=== PATIENT | female | born 1940 | race Caucasian/White ===

== ENCOUNTER 2017-01-21 14:33 | Emergency (ER) | payer MEDICARE ==
[2017-01-21 15:17] VITALS: RESP 16; TEMP 97.5
[2017-01-21] MEDS ORDERED: HYDROcodone/APAP 5-325MG 1 EACH TAB PO STA (15:52)
--- NOTE | 2017-01-21 15:56 | ED ---
Abdominal Pain HPI - General Chief Complaint: Abdominal Pain Stated Complaint: Back in her back Time Seen by Provider: 01/21/17 15:22 Source: patient, RN notes reviewed Mode of arrival: ambulatory Limitations: no limitations - History of Present Illness Initial Comments: Patient is a 76-year-old female presents to the emergency room for evaluation of right sided back pain. Patient states she's been having on and off right- sided back pain for the past 3 weeks. Patient states the pain began again last night and has not subsided. Patient states she has some relief with Tylenol. Patient states there is no relief with movement of her limbs or back. Patient states the pain is not any worse with taking a deep breath. Patient denies any injury or trauma to her back. Patient states the pain is inferior to her right scapula. Patient states the pain is not any worse with arm movement. Patient denies trouble urinating, pain or burning during urination or blood in urine. Patient denies history of kidney stones. Patient has nausea or vomiting. Patient denies recent heavy lifting or changes in physical activity. - Related Data Home Medications Medication Instructions Recorded Confirmed Cholecalciferol [Vitamin D3] 5,000 unit PO DAILY 01/21/17 01/21/17 Flaxseed Oil [[place]-3 Flaxseed Oil] 1,000 mg PO DAILY 01/21/17 01/21/17 Previous Rx's Medication Instructions Recorded HYDROcodone/APAP 5-325MG [[place] 1 tab PO Q6HR PRN #12 tab 01/21/17 5-325] Nitrofurantoin Monohyd/M-Cryst 100 mg PO Q12HR 5 Days 01/21/17 [Macrobid] Allergies Allergy/AdvReac Type Severity Reaction Status Date / Time aspirin Allergy Anaphylaxis Verified 01/21/17 15:37 ibuprofen [From Motrin] Allergy Anaphylaxis Verified 01/21/17 15:37 Review of Systems ROS Statement: Those systems with pertinent positive or pertinent negative responses have been documented in the HPI. ROS Other: All systems not noted in ROS Statement are negative. Past Medical History Past Medical History: Diabetes Mellitus History of Any Multi-Drug Resistant Organisms: None Reported Past Surgical History: Cholecystectomy, Hysterectomy Additional Past Surgical History / Comment(s): mass removed from (R) ovary. Past Psychological History: No Psychological Hx Reported Smoking Status: Never smoker Past Alcohol Use History: None Reported Past Drug Use History: None Reported General Exam - General Exam Comments Initial Comments: Sitting in exam room in no acute distress. Limitations: no limitations General appearance: alert, in no apparent distress Head exam: Present: atraumatic, normocephalic, normal inspection Eye exam: Present: normal appearance ENT exam: Present: normal exam Neck exam: Present: normal inspection Respiratory exam: Present: normal lung sounds bilaterally. Absent: respiratory distress Cardiovascular Exam: Present: regular rate, normal rhythm, normal heart sounds GI/Abdominal exam: Present: soft, normal bowel sounds. Absent: distended, tenderness, guarding, rebound, rigid Rectal exam: Present: deferred Extremities exam: Present: normal inspection Back exam: Present: normal inspection Neurological exam: Present: alert, oriented X3, CN II-XII intact, normal gait Psychiatric exam: Present: normal affect, normal mood Skin exam: Present: warm, dry, intact, normal color. Absent: rash Course Vital Signs 01/21/17 01/21/17 15:14 19:42 Temperature 97.5 F L Pulse Rate 84 78 Respiratory 16 16 Rate Blood Pressure 137/85 138/78 O2 Sat by Pulse 98 97 Oximetry Medical Decision Making - Medical Decision Making Patient is a 76-year-old female presents to the emergency room for evaluation of right-sided back pain. X-ray shows no significant findings. Urinalysis showed small amount hematuria. Lab work shows no significant findings. CT of abdomen and pelvis shows no signs of nephrolithiasis. There was a small 4 mm pulmonary nodule noted. Results discussed with patient. Advised patient to follow-up with primary care provider for further evaluation of pulmonary nodule. Patient states she's feeling better after medications given. Will treat patient for questionable urinary tract infection. Urine culture pending. Patient states she understands everything that was discussed with her. Return parameters discussed. Case discussed with Dr. Alford. - Lab Data Result diagrams: 01/21/17 17:00 01/21/17 17:00 Lab Results 01/21/17 01/21/17 01/21/17 Range/Units 16:04 17:00 17:00 WBC 9.8 (3.8-10.6) k/uL RBC 5.04 (3.80-5.40) m/uL Hgb 15.6 (11.4-16.0) gm/dL Hct 45.5 (34.0-46.0) % MCV 90.3 (80.0-100.0) fL MCH 31.1 (25.0-35.0) pg MCHC 34.4 (31.0-37.0) g/dL RDW 13.1 (11.5-15.5) % Plt Count 283 (150-450) k/uL Neutrophils % 65 % Lymphocytes % 20 % Monocytes % 7 % Eosinophils % 5 % Basophils % 1 % Neutrophils # 6.4 (1.3-7.7) k/uL Lymphocytes # 2.0 (1.0-4.8) k/uL Monocytes # 0.7 (0-1.0) k/uL Eosinophils # 0.5 (0-0.7) k/uL Basophils # 0.1 (0-0.2) k/uL Sodium 142 (137-145) mmol/L Potassium 4.4 (3.5-5.1) mmol/L Chloride 101 (98-107) mmol/L Carbon Dioxide 30 (22-30) mmol/L Anion Gap 11 mmol/L BUN 14 (7-17) mg/dL Creatinine 0.84 (0.52-1.04) mg/dL Est GFR (MDRD) Af Amer >60 (>60 ml/min/1.73 sqM) Est GFR (MDRD) Non-Af >60 (>60 ml/min/1.73 sqM) Glucose 88 (74-99) mg/dL Calcium 9.9 (8.4-10.2) mg/dL Total Bilirubin 0.7 (0.2-1.3) mg/dL AST 44 H (14-36) U/L ALT 48 (9-52) U/L Alkaline Phosphatase 96 (38-126) U/L Total Protein 7.6 (6.3-8.2) g/dL Albumin 4.5 (3.5-5.0) g/dL Urine Color Yellow Urine Appearance Cloudy H (Clear) Urine pH 5.0 (5.0-8.0) Ur Specific Coleman 1.024 (1.001-1.035) Urine Protein Trace H (Negative) Urine Glucose (UA) Negative (Negative) Urine Ketones Negative (Negative) Urine Blood Negative (Negative) Urine Nitrite Negative (Negative) Urine Bilirubin Negative (Negative) Urine Urobilinogen <2.0 (<2.0) mg/dL Ur Leukocyte Esterase Large H (Negative) Urine RBC 88 H (0-5) /hpf Urine WBC 10 H (0-5) /hpf Ur Squamous Epith Cells 9 H (0-4) /hpf Urine Bacteria Moderate H (None) /hpf Hyaline Casts 18 H (0-2) /lpf Urine Mucus Many H (None) /hpf - Radiology Data Radiology results: report reviewed, image reviewed Disposition Clinical Impression: Urinary tract infection, Pulmonary nodule seen on imaging study Disposition: HOME SELF-CARE Condition: Good Instructions: Urinary Tract Infection in Women (ED), Pulmonary Nodules (ED) Additional Instructions: Take antibiotics as directed. Take pain medications as needed for severe pain. Please follow up with primary care provider for reevaluation and for further evaluation of pulmonary nodule. If any new symptom arises, symptoms worsen, return to ER as soon as possible. Prescriptions: HYDROcodone/APAP 5-325MG [[place] 5-325] 1 tab PO Q6HR PRN #12 tab PRN Reason: Pain Nitrofurantoin Monohyd/M-Cryst [Macrobid] 100 mg PO Q12HR 5 Days Referrals: Samuel Crowder MD [Primary Care Provider] - 1-2 days Time of Disposition: 19:24
[2017-01-21 16:22] LABS: Appearance,Urine Cloudy (Clear); Bacteria,Urine Moderate /hpf; Bilirubin,Urine Negative (Negative); Glucose,Urine (UA) Negative (Negative); Ketones,Urine Negative (Negative); Leukocyte Esterase,Urine Large (Negative); Mucus,Urine Many /hpf; Nitrite,Urine Negative (Negative); Particle Count 12482; Protein,Urine Trace (Negative); RBC,Urine 88 /hpf (0-5); Specific Gravity,Urine 1.024 (1.001-1.035); Squamous Epithelial Cell,Urine 9 /hpf (0-4); UA Billing (MACRO vs. MICRO) MICRO; Urobilinogen,Urine <2.0 mg/dL (<2.0); WBC,Urine 10 /hpf (0-5)
--- NOTE | 2017-01-21 16:30 | XR ---
EXAMINATION TYPE: XR ribs RT w pa chest xray DATE OF EXAM: 01/21/2017 4:17 PM COMPARISON: 06/23/2012 HISTORY: 76-year-old female right-sided flank pain for 2 weeks FINDINGS: The heart is upper limits of normal in size. Atherosclerotic arch calcifications. Diffuse interstitia l prominence unchanged from 2011. No consolidation, pneumothorax, or pleural effusion. Evaluation of the right-sided ribs shows no displaced fracture. Cholecystectomy clips are present. IMPRESSION: 1. Chronic changes, possible chronic bronchitis/asthma. 2. No acute pulmonary process. 3. No displaced right rib fracture seen.
[2017-01-21] MEDS ORDERED: SODIUM CHLORIDE 0.9% 1,000 ML IV ONE (16:39)
[2017-01-21 17:12] LABS: Basophils # (A) 0.1 k/uL (0-0.2); Basophils % (A) 1 %; CH 32.1; CHCM 35.7; Eosinophils # (A) 0.5 k/uL (0-0.7); Eosinophils % (A) 5 %; HCT 45.5 % (34.0-46.0); HDW 2.84; HGB 15.6 gm/dL (11.4-16.0); Luc # (Auto) 0.19; Luc % (Auto) 2; Lymphocytes % (A) 20 %; MCH 31.1 pg (25.0-35.0); MCHC 34.4 g/dL (31.0-37.0); MCV 90.3 fL (80.0-100.0); Mean Platelet Volume 7.6; Monocytes # (A) 0.7 k/uL (0-1.0); Monocytes % (A) 7 %; Neutrophils # (A) 6.4 k/uL (1.3-7.7); Neutrophils % (A) 65 %; RBC 5.04 m/uL (3.80-5.40); RDW 13.1 % (11.5-15.5); WBC 9.8 k/uL (3.8-10.6); WBC (Perox) 9.36
[2017-01-21 17:24] LABS: ALT 48 U/L (9-52); AST 44 U/L (14-36); Alkaline Phosphatase 96 U/L (38-126); Anion Gap 11 mmol/L; Blood Urea Nitrogen 14 mg/dL (7-17); Calcium 9.9 mg/dL (8.4-10.2); Carbon Dioxide 30 mmol/L (22-30); Chloride 101 mmol/L (98-107); Glucose 88 mg/dL (74-99); Non-African American GFR(MDRD) >60 (>60 ml/min/1.73 sqM); Potassium 4.4 mmol/L (3.5-5.1); Sodium 142 mmol/L (137-145); Total Bilirubin 0.7 mg/dL (0.2-1.3); Total Protein 7.6 g/dL (6.3-8.2)
--- NOTE | 2017-01-21 19:02 | CT ---
EXAMINATION TYPE: CT abdomen pelvis wo con DATE OF EXAM: 01/21/2017 6:16 PM COMPARISON: NONE HISTORY: Left flank pain. CT DLP: 913.40 mGycm Automated exposure control for dose reduction was used. TECHNIQUE: Helical acquisition of images was performed from the lung bases through the pelvis. FINDINGS: LUNG BASES: 4 mm pulmonary nodule is seen within the right lower lobe on image 60. Bibasilar subsegme ntal atelectasis is noted. LIVER/GB: The gallbladder is surgically absent with cholecystectomy clips noted within the right uppe r quadrant. No intrahepatic or extrahepatic biliary ductal dilatation. The liver is mildly enlarged e xtending just beyond the iliac crest. PANCREAS: Is mild pancreatic atrophy. SPLEEN: No significant abnormality is seen. ADRENALS: No significant abnormality is seen. KIDNEYS: No significant abnormality is seen. There is no evidence of nephrolithiasis, hydronephrosis or hydroureter area no perinephric fat stranding is noted. RETROPERITONEAL ADENOPATHY: None visualized REPRODUCTIVE ORGANS: No significant abnormality is seen URINARY BLADDER: No significant abnormality is seen. PELVIC ADENOPATHY: None visualized. OSSEOUS STRUCTURES: Mild degenerative changes of the thoracolumbar and lumbosacral spine are seen.. BOWEL: There is a small hiatal hernia noted. The remainder the bowel is unremarkable with no evidenc e of dilation other than sigmoid diverticula and no pericolonic fat stranding. A few other diverticul a are scattered throughout the remainder the colon. OTHER: A small fat filled umbilical hernia is seen. IMPRESSION: 1. NO EVIDENCE OF NEPHROLITHIASIS, HYDRONEPHROSIS, OR HYDROURETER. 2. PANCOLONIC DIVERTICULOSIS MOST PRONOUNCED WITHIN THE SIGMOID COLON WITHOUT EVIDENCE OF DIVERTICULI TIS. 3. SUBCENTIMETER RIGHT LOWER LOBE PULMONARY NODULE. NONEMERGENT CT THORAX IS RECOMMENDED FOR FURTHER EVALUATION.
[2017-01-21 19:43] VITALS: BP 138/78; PULSE 78
== END 2017-01-21 19:42 | disposition home or self-care (01) ==
LOC: EC 14:33
DX: N39.0 Urinary tract infection, site not specified (principal); R31.9 Hematuria, unspecified; R91.1 Solitary pulmonary nodule; Z88.6 Allergy status to analgesic agent; Z88.8 Allergy status to other drugs, medicaments and biological substances
CPT/HCPCS: 36415; 74176; 80053; 81001; 85025; 87086; 96360; 99284

== ENCOUNTER 2018-01-04 15:38 | Emergency (ER) | payer MEDICARE ==
[2018-01-04] MEDS ORDERED: IPRATROPIUM-ALBUTEROL 3 ML NEB INHALATION STA ×2 (15:55→17:06)
[2018-01-04 16:25] LABS: Basophils % (A) 0 %; Eosinophils # (A) 0.5 k/uL (0-0.7); Eosinophils % (A) 7 %; HCT 42.4 % (34.0-46.0); HGB 14.8 gm/dL (11.4-16.0); Lymphocytes # (A) 1.1 k/uL (1.0-4.8); Lymphocytes % (A) 15 %; MCH 30.8 pg (25.0-35.0); MCHC 34.8 g/dL (31.0-37.0); MCV 88.3 fL (80.0-100.0); Mean Platelet Volume 6.6; Monocytes # (A) 0.6 k/uL (0-1.0); Monocytes % (A) 8 %; Neutrophils # (A) 5.1 k/uL (1.3-7.7); Neutrophils % (A) 69 %; Platelet Count 233 k/uL (150-450); WBC 7.5 k/uL (3.8-10.6)
[2018-01-04 16:33] LABS: ALT 47 U/L (9-52); AST 42 U/L (14-36); Albumin 4.4 g/dL (3.5-5.0); Alkaline Phosphatase 109 U/L (38-126); Anion Gap 11 mmol/L; Blood Urea Nitrogen 16 mg/dL (7-17); Calcium 9.5 mg/dL (8.4-10.2); Carbon Dioxide 27 mmol/L (22-30); Chloride 101 mmol/L (98-107); Glucose 86 mg/dL (74-99); Potassium 4.2 mmol/L (3.5-5.1); Sodium 139 mmol/L (137-145); Total Bilirubin 0.7 mg/dL (0.2-1.3); Total Protein 7.2 g/dL (6.3-8.2)
[2018-01-04 16:37] LABS: Prothrombin Time 10.2 sec (9.0-12.0)
--- NOTE | 2018-01-04 17:01 | XR ---
EXAMINATION TYPE: XR chest 2V DATE OF EXAM: 01/04/2018 COMPARISON: 06/23/2012 HISTORY: Cough and congestion TECHNIQUE: Frontal and lateral views of the chest are obtained. FINDINGS: There is mild coarsening of interstitial pulmonary markings. There is no gross heart failu re. Thoracic aorta is atheromatous. Heart size is top normal. I see no pleural effusion. There are ch est leads. Thoracic aorta is atheromatous. IMPRESSION: Pulmonary fibrotic changes. Atheromatous aorta. No adverse change compared to old exam.
--- NOTE | 2018-01-04 17:04 | ED ---
URI HPI - General Chief Complaint: Upper Respiratory Infection Stated Complaint: Cough/congestion Time Seen by Provider: 01/04/18 15:43 Source: patient, RN notes reviewed Mode of arrival: ambulatory Limitations: no limitations - History of Present Illness Initial Comments: 77-year-old female presents emergency Department chief complaint cough congestion last 2-3 days. Patient states that she's noticed some wheezing at home. She has no prior lung diseases that she's been diagnosed with. Patient denies any known fever states that she's felt hot at home. She denies chest pain. Patient states that she has some sinus congestion and runny nose. Denies sore throat, ear pain, headache or dizziness. Patient denies any nausea and diarrhea constipation. - Related Data Home Medications Medication Instructions Recorded Confirmed Cholecalciferol [Vitamin D3] 5,000 unit PO DAILY 01/21/17 01/04/18 Flaxseed Oil [[place]-3 Flaxseed Oil] 1,000 mg PO DAILY 01/21/17 01/04/18 Previous Rx's Medication Instructions Recorded Albuterol Sulfate [Proair Hfa] 1 - 2 puff INHALATION Q4HR PRN #1 01/04/18 inhaler Azithromycin [Zithromax Z-pack] 0 mg PO DIRECTED #1 pack 01/04/18 predniSONE 50 mg PO DAILY #5 tab 01/04/18 Allergies Allergy/AdvReac Type Severity Reaction Status Date / Time aspirin Allergy Anaphylaxis Verified 01/04/18 15:57 ibuprofen [From Motrin] Allergy Anaphylaxis Verified 01/04/18 15:57 Review of Systems ROS Statement: Those systems with pertinent positive or pertinent negative responses have been documented in the HPI. ROS Other: All systems not noted in ROS Statement are negative. Past Medical History Past Medical History: Diabetes Mellitus History of Any Multi-Drug Resistant Organisms: None Reported Past Surgical History: Cholecystectomy, Hysterectomy Additional Past Surgical History / Comment(s): mass removed from (R) ovary. Past Psychological History: No Psychological Hx Reported Smoking Status: Never smoker Past Alcohol Use History: None Reported Past Drug Use History: None Reported General Exam Limitations: no limitations General appearance: alert, in no apparent distress Head exam: Present: atraumatic, normocephalic, normal inspection Eye exam: Present: normal appearance, PERRL, EOMI. Absent: scleral icterus, conjunctival injection, periorbital swelling ENT exam: Present: normal exam, normal oropharynx, mucous membranes moist, TM's normal bilaterally, normal external ear exam Neck exam: Present: normal inspection, full ROM. Absent: tenderness, meningismus, lymphadenopathy Respiratory exam: Present: wheezes. Absent: normal lung sounds bilaterally, respiratory distress, rales, rhonchi, stridor Cardiovascular Exam: Present: regular rate, normal rhythm, normal heart sounds. Absent: systolic murmur, diastolic murmur, rubs, gallop, clicks Course Vital Signs 01/04/18 01/04/18 01/04/18 15:39 16:14 16:34 Temperature 98.3 F Pulse Rate 99 100 103 H Respiratory 24 Rate Blood Pressure 166/83 O2 Sat by Pulse 94 L Oximetry 01/04/18 01/04/18 01/04/18 17:09 17:20 17:35 Temperature 100.6 F H Pulse Rate 100 101 H 115 H Respiratory 20 Rate Blood Pressure 155/75 O2 Sat by Pulse 95 Oximetry Medical Decision Making - Medical Decision Making 77-year-old female presents emergency Department with chief complaint of cough and congestion. Patient did have some initial wheezing improved after 2 DuoNeb treatments. Patient was updated lab results which are unremarkable. Patient was offered admission but she states she feels okay to go home at this time. She'll be discharged with antibiotics, steroids and inhaler. - Lab Data Result diagrams: 01/04/18 16:05 01/04/18 16:05 Lab Results 01/04/18 01/04/18 01/04/18 Range/Units 16:05 16:05 16:05 WBC 7.5 (3.8-10.6) k/uL RBC 4.80 (3.80-5.40) m/uL Hgb 14.8 (11.4-16.0) gm/dL Hct 42.4 (34.0-46.0) % MCV 88.3 (80.0-100.0) fL MCH 30.8 (25.0-35.0) pg MCHC 34.8 (31.0-37.0) g/dL RDW 13.0 (11.5-15.5) % Plt Count 233 (150-450) k/uL Neutrophils % 69 % Lymphocytes % 15 % Monocytes % 8 % Eosinophils % 7 % Basophils % 0 % Neutrophils # 5.1 (1.3-7.7) k/uL Lymphocytes # 1.1 (1.0-4.8) k/uL Monocytes # 0.6 (0-1.0) k/uL Eosinophils # 0.5 (0-0.7) k/uL Basophils # 0.0 (0-0.2) k/uL PT 10.2 (9.0-12.0) sec INR 1.0 (<1.2) APTT 23.0 (22.0-30.0) sec Sodium 139 (137-145) mmol/L Potassium 4.2 (3.5-5.1) mmol/L Chloride 101 (98-107) mmol/L Carbon Dioxide 27 (22-30) mmol/L Anion Gap 11 mmol/L BUN 16 (7-17) mg/dL Creatinine 0.80 (0.52-1.04) mg/dL Est GFR (MDRD) Af Amer >60 (>60 ml/min/1.73 sqM) Est GFR (MDRD) Non-Af >60 (>60 ml/min/1.73 sqM) Glucose 86 (74-99) mg/dL Plasma Lactic Acid Aldo (0.7-2.0) mmol/L Calcium 9.5 (8.4-10.2) mg/dL Magnesium 2.1 (1.6-2.3) mg/dL Total Bilirubin 0.7 (0.2-1.3) mg/dL AST 42 H (14-36) U/L ALT 47 (9-52) U/L Alkaline Phosphatase 109 (38-126) U/L Total Protein 7.2 (6.3-8.2) g/dL Albumin 4.4 (3.5-5.0) g/dL Influenza Type A RNA (Not Detectd) Influenza Type B (PCR) (Not Detectd) 01/04/18 01/04/18 Range/Units 16:05 16:05 WBC (3.8-10.6) k/uL RBC (3.80-5.40) m/uL Hgb (11.4-16.0) gm/dL Hct (34.0-46.0) % MCV (80.0-100.0) fL MCH (25.0-35.0) pg MCHC (31.0-37.0) g/dL RDW (11.5-15.5) % Plt Count (150-450) k/uL Neutrophils % % Lymphocytes % % Monocytes % % Eosinophils % % Basophils % % Neutrophils # (1.3-7.7) k/uL Lymphocytes # (1.0-4.8) k/uL Monocytes # (0-1.0) k/uL Eosinophils # (0-0.7) k/uL Basophils # (0-0.2) k/uL PT (9.0-12.0) sec INR (<1.2) APTT (22.0-30.0) sec Sodium (137-145) mmol/L Potassium (3.5-5.1) mmol/L Chloride (98-107) mmol/L Carbon Dioxide (22-30) mmol/L Anion Gap mmol/L BUN (7-17) mg/dL Creatinine (0.52-1.04) mg/dL Est GFR (MDRD) Af Amer (>60 ml/min/1.73 sqM) Est GFR (MDRD) Non-Af (>60 ml/min/1.73 sqM) Glucose (74-99) mg/dL Plasma Lactic Acid Aldo 1.0 (0.7-2.0) mmol/L Calcium (8.4-10.2) mg/dL Magnesium (1.6-2.3) mg/dL Total Bilirubin (0.2-1.3) mg/dL AST (14-36) U/L ALT (9-52) U/L Alkaline Phosphatase (38-126) U/L Total Protein (6.3-8.2) g/dL Albumin (3.5-5.0) g/dL Influenza Type A RNA Not Detected (Not Detectd) Influenza Type B (PCR) Not Detected (Not Detectd) - EKG Data EKG Comments: EKG performed at 16:13 normal sinus rhythm with a rate of 100 NE 128 QRS 84 QT/ QTC 336/433 Disposition Clinical Impression: Acute bronchitis Disposition: HOME SELF-CARE Condition: Stable Instructions: Upper Respiratory Infection (ED) Additional Instructions: Please return to the Emergency Department if symptoms worsen or any other concerns. Prescriptions: Albuterol Sulfate [Proair Hfa] 1 - 2 puff INHALATION Q4HR PRN #1 inhaler PRN Reason: difficulty in breathing Azithromycin [Zithromax Z-pack] 0 mg PO DIRECTED #1 pack predniSONE 50 mg PO DAILY #5 tab Referrals: Samuel Crowder MD [Primary Care Provider] - 1-2 days Time of Disposition: 17:40
[2018-01-04] MEDS ORDERED: methylPREDNISolone SOD SUCCI 125 MG/2 ML VIAL IV STA (17:06)
[2018-01-04 17:37] VITALS: BP 155/75; PULSE 115; RESP 20; TEMP 100.6
[2018-01-04] MEDS ORDERED: ACETAMINOPHEN TAB 325 MG TAB PO STA (17:38)
== END 2018-01-04 17:56 | disposition home or self-care (01) ==
LOC: EC 15:38
DX: J20.9 Acute bronchitis, unspecified (principal); Z79.899 Other long term (current) drug therapy; Z88.6 Allergy status to analgesic agent
CPT/HCPCS: 99284; 96374; 36415; 94640 ×2; 93005; 80053; 83605; 83735; 85025; 85610; 85730; 87040; 87502; 71046; J2930

== ENCOUNTER 2019-01-25 15:07 | Emergency (ER) | payer MEDICARE ==
[2019-01-25 15:15] VITALS: BP 136/60; PULSE 71; RESP 18; TEMP 98.4
--- NOTE | 2019-01-25 16:12 | XR ---
EXAMINATION TYPE: XR knee complete RT DATE OF EXAM: 01/25/2019 CLINICAL HISTORY: Right anterior knee pain after fall injury 5 days ago. TECHNIQUE: Three views of the right knee are obtained. COMPARISON: None. FINDINGS: There is age-indeterminate fracture through the superior posterior aspect of the patella. There is mild to moderate tricompartment joint space loss. There is suspected small suprapatellar sherri nt effusion. There is posterior lateral phlebolith distal femoral level noted. There is additional sp urring anterior superior patellar distal quadriceps tendon attachment. IMPRESSION: There is age-indeterminate slightly displaced fracture through posterior superior aspec t of patella, cannot exclude acute fracture.
--- NOTE | 2019-01-25 16:32 | ED ---
Lower Extremity Injury HPI - General Chief Complaint: Extremity Injury, Lower Stated Complaint: Fall,knee injury Time Seen by Provider: 01/25/19 15:45 Source: patient, RN notes reviewed, old records reviewed Mode of arrival: wheelchair Limitations: no limitations - History of Present Illness Initial Comments: This is a 70-year-old female the ER from fall from standing with right knee pain landing on right knee. No other traumatic injury noted. Patient has pain with extending the knee pain is standing up or sitting position. Otherwise patient denies any further complaint, Motrin Tylenol without help with pain mild swelling to the joint MD Complaint: knee injury (R) -: days(s) (5) Injury: Knee: Right Type of Injury: blunt Place: home, street/outdoors Severity: moderate Severity scale (1-10): 5 Improves With: NSAID Worsens With: weight bearing, movement Context: fall, direct blow Associated Symptoms: swelling, able to partially bear weight - Related Data Home Medications Medication Instructions Recorded Confirmed Cholecalciferol [Vitamin D3] 5,000 unit PO DAILY 01/21/17 01/04/18 Flaxseed Oil [[place]-3 Flaxseed Oil] 1,000 mg PO DAILY 01/21/17 01/04/18 Previous Rx's Medication Instructions Recorded Albuterol Sulfate [Proair Hfa] 1 - 2 puff INHALATION Q4HR PRN #1 01/04/18 inhaler Azithromycin [Zithromax Z-pack] 0 mg PO DIRECTED #1 pack 01/04/18 predniSONE 50 mg PO DAILY #5 tab 01/04/18 Allergies Allergy/AdvReac Type Severity Reaction Status Date / Time aspirin Allergy Anaphylaxis Verified 01/25/19 15:15 ibuprofen [From Motrin] Allergy Anaphylaxis Verified 01/25/19 15:15 Review of Systems ROS Statement: Those systems with pertinent positive or pertinent negative responses have been documented in the HPI. ROS Other: All systems not noted in ROS Statement are negative. Past Medical History Past Medical History: Diabetes Mellitus History of Any Multi-Drug Resistant Organisms: None Reported Past Surgical History: Cholecystectomy, Hysterectomy Additional Past Surgical History / Comment(s): mass removed from (R) ovary. Past Psychological History: No Psychological Hx Reported Smoking Status: Never smoker Past Alcohol Use History: None Reported Past Drug Use History: None Reported General Exam Limitations: no limitations General appearance: alert, in no apparent distress Head exam: Present: atraumatic, normocephalic, normal inspection Eye exam: Present: normal appearance, PERRL, EOMI. Absent: scleral icterus, conjunctival injection, periorbital swelling ENT exam: Present: normal exam, mucous membranes moist Neck exam: Present: normal inspection. Absent: tenderness, meningismus, lymphadenopathy Respiratory exam: Present: normal lung sounds bilaterally. Absent: respiratory distress, wheezes, rales, rhonchi, stridor Cardiovascular Exam: Present: regular rate, normal rhythm, normal heart sounds. Absent: systolic murmur, diastolic murmur, rubs, gallop, clicks GI/Abdominal exam: Present: soft, normal bowel sounds. Absent: distended, tenderness, guarding, rebound, rigid Extremities exam: Present: normal inspection, full ROM, normal capillary refill, other (R knee edema and TTP). Absent: tenderness, pedal edema, joint swelling, calf tenderness Back exam: Present: normal inspection Neurological exam: Present: alert, oriented X3, CN II-XII intact Psychiatric exam: Present: normal affect, normal mood Skin exam: Present: warm, dry, intact, normal color. Absent: rash Course Vital Signs 01/25/19 15:11 Temperature 98.4 F Pulse Rate 71 Respiratory 18 Rate Blood Pressure 136/60 O2 Sat by Pulse 96 Oximetry Medical Decision Making - Medical Decision Making 70 female the remote patellar fracture, patient has been walking started walking significant difficulty. Patient will follow-up with orthopedics for further evaluation and management. Patient is able to straight leg with mild pain Disposition Clinical Impression: Right patella fracture, Fall Disposition: HOME SELF-CARE Condition: Good Instructions (If sedation given, give patient instructions): Patellar Fracture (ED) Is patient prescribed a controlled substance at d/c from ED?: No Referrals: Krish Bonilla MD [STAFF PHYSICIAN] - 1-2 days
--- NOTE | 2019-01-26 03:57 | CDI ---
Dear Cruz Pedroza DO: Please do addendum History of Present Illness and Physical Examination. Thank you, Rhonda Mcgarry, [employer]. If you have any questions, please contact [employer] Operator at [phone]. [facility]
== END 2019-01-25 16:50 | disposition home or self-care (01) ==
LOC: EC 15:07
DX: S82.001A Unspecified fracture of right patella, initial encounter for closed fracture (principal); Z88.6 Allergy status to analgesic agent; W19.XXXA Unspecified fall, initial encounter; Y92.410 Unspecified street and highway as the place of occurrence of the external cause
CPT/HCPCS: 99284

== ENCOUNTER 2019-11-23 21:09 | Emergency (ER) | payer MEDICARE ==
[2019-11-23 21:13] VITALS: BP 150/81; PULSE 80; RESP 16; TEMP 97.9
--- NOTE | 2019-11-23 22:06 | XR ---
EXAMINATION: XR chest 2V DATE AND TIME: 11/23/2019 9:30 PM CLINICAL INDICATION: PHH; cough TECHNIQUE: Departmental protocol COMPARISON: None FINDINGS: The lungs are clear. The pleural spaces are negative. The cardiac silhouette is mild-moderately enlarged. The remainder of the mediastinal silhouette is un remarkable. The skeletal structures and soft tissues are negative for acute findings. IMPRESSION: NO ACUTE PROCESS.
[2019-11-23] MEDS ORDERED: CIPROFLOXACIN-DEXAMETH 0.3-0.1% DROPS 7.5 ML BTL RIGHT EAR STA (22:18)
--- NOTE | 2019-11-23 22:20 | ED ---
General Adult HPI - General Chief complaint: ENT Stated complaint: Ear swelling Time Seen by Provider: 11/23/19 21:15 Source: patient, RN notes reviewed, old records reviewed Mode of arrival: ambulatory Limitations: no limitations - History of Present Illness Initial comments: 79-year-old female patient who states that she has no previous past medical hist ory is not take any regular medications presents to ED for chief complaint of 3 days of right ear pain. Patient reports that last week she had a upper respiratory like symptoms with a mild cough. Patient reports this is greatly improved her she is still having a mild cough. Denies any other complaints at this time. Systemic: Pt denies fatigue, fever/chills, rash. Pt denies weakness, night swea ts, weight loss. Neuro: Pt denies headache, visual disturbances, syncope or pre-syncope. HEENT: Pt denies ocular discharge or irritation,rhinorrhea, pharyngitis or notable lymphadenopathy. Cardiopulmonary: Pt denies chest pain, SOB, heart palpitations, dyspnea on exertion. Abdominal/GI: Pt denies abdominal pain, n/v/d. : Pt denies dysuria, burning w/ urination, frequency/urgency. Denies new onset urinary or bowel incontinence. MSK: Pt denies myalgia, loss of strength or function in extremities. Neuro: Pt denies new onset weakness, paresthesias. - Related Data Home Medications Medication Instructions Recorded Confirmed Cholecalciferol [Vitamin D3] 5,000 unit PO DAILY 01/21/17 01/04/18 Flaxseed Oil [[place]-3 Flaxseed Oil] 1,000 mg PO DAILY 01/21/17 01/04/18 Previous Rx's Medication Instructions Recorded Albuterol Sulfate [Proair Hfa] 1 - 2 puff INHALATION Q4HR PRN #1 01/04/18 inhaler Azithromycin [Zithromax Z-pack] 0 mg PO DIRECTED #1 pack 01/04/18 predniSONE 50 mg PO DAILY #5 tab 01/04/18 Ciprofloxacin-Dexameth [Ciprodex 4 drops RIGHT EAR BID 7 Days #1 11/23/19 Otic Susp] bottle Allergies Allergy/AdvReac Type Severity Reaction Status Date / Time aspirin Allergy Anaphylaxis Verified 11/23/19 21:10 ibuprofen [From Motrin] Allergy Anaphylaxis Verified 11/23/19 21:10 Review of Systems ROS Statement: Those systems with pertinent positive or pertinent negative responses have been documented in the HPI. ROS Other: All systems not noted in ROS Statement are negative. Past Medical History Past Medical History: Diabetes Mellitus History of Any Multi-Drug Resistant Organisms: None Reported Past Surgical History: Cholecystectomy, Hysterectomy Additional Past Surgical History / Comment(s): mass removed from (R) ovary. Past Psychological History: No Psychological Hx Reported Smoking Status: Never smoker Past Alcohol Use History: None Reported Past Drug Use History: None Reported General Exam - General Exam Comments Initial Comments: Constitutional: NAD, AOX3, Pt has pleasant affect. HEENT: NC/AT, trachea midline, neck supple, no lymphadenopathy. Posterior pharynx non erythematous, without exudates. Left external auditory canal nonedematous. Right external auditory canal slightly edematous and erythematous. Mild amount of right anterior lymphadenopathy noted. Mastoids nontender non-erythematous bilaterally. Tympanic membranes pale nickerson bilaterally.. No otorrhea or discharge. Mucous membranes moist. Eyes PERRLA, EOM intact. There is no scleral icterus. No pallor noted. Cardiopulmonary: RRR, no murmurs, rubs or gallops, no JVD noted. Lungs CTAB in anterior and posterior headley. No peripheral edema. Abdominal exam: Abdomen soft and non-distended. Abdomen non-tender to palpation in all 4 quadrants. Bowel sounds active in LLQ. No hepatosplenomegaly. No ecchymosis Neuro: CN II-XII grossly intact. No nuchal rigidity. No raccon eyes, no lopez sign, no hemotympanum. No cervical spinal tenderness. MSK: No posterior calf tenderness bilaterally, homans sign negative bilaterally. Posterior tibialis and radial pulse +2 bilaterally. Sensation intact in upper and lower extremities. Full active ROM in upper and lower extremities, 5/5 stregnth. Limitations: no limitations Course Vital Signs 11/23/19 21:10 Temperature 97.9 F Pulse Rate 80 Respiratory 16 Rate Blood Pressure 150/81 O2 Sat by Pulse 98 Oximetry Medical Decision Making - Medical Decision Making 79-year-old female patient presents to ED for chief complaint of ear pain has been ongoing for 3 days. Patient also has a mild cough which she states is improved. Physical exam displayed anterior lymphadenopathy right-sided. Auditory canal slightly edematous as well. Tympanic Membranes is pale nickerson. Leydi st x-ray is negative. Patient was initiated on Ciprodex drops. Further history taking patient does reveal that she did scratch the inside of the ear with her fingernail. Will follow up with primary care provider will return to ER if condition worsens. Case discussed with Dr. Rodriguez. Disposition Clinical Impression: Otitis externa Disposition: HOME SELF-CARE Condition: Stable Instructions (If sedation given, give patient instructions): Otitis Externa (ED) Additional Instructions: Use medication as directed. Follow up with primary care provider tomorrow. Return to ER if condition worsens in any way. Use 4 drops in affected ear twice a day for the next 7 days. Prescriptions: Ciprofloxacin-Dexameth [Ciprodex Otic Susp] 4 drops RIGHT EAR BID 7 Days #1 bottle Is patient prescribed a controlled substance at d/c from ED?: No Referrals: Samuel Crowder MD [Primary Care Provider] - 1-2 days
== END 2019-11-23 22:58 | disposition home or self-care (01) ==
LOC: EC 21:09
DX: H60.91 Unspecified otitis externa, right ear (principal); R59.0 Localized enlarged lymph nodes; R05 Cough; Z88.6 Allergy status to analgesic agent
CPT/HCPCS: 71046; 99283

== ENCOUNTER 2019-11-28 14:25 | Emergency (ER) | payer MEDICARE ==
[2019-11-28 14:32] VITALS: BP 147/96; PULSE 80; RESP 19; TEMP 97.4
[2019-11-28] MEDS ORDERED: CIPROFLOXACIN-DEXAMETH 0.3-0.1% DROPS 7.5 ML BTL RIGHT EAR STA (14:47)
--- NOTE | 2019-11-28 14:51 | ED ---
ENT HPI - General Chief complaint: ENT Stated complaint: ear pain Time Seen by Provider: 11/28/19 14:33 Source: patient, RN notes reviewed Mode of arrival: ambulatory Limitations: no limitations - History of Present Illness Initial comments: 79-year-old female presents emergency from for recheck of right ear pain. Patient states started approximately one week ago. She has been using eardrops for the last 4-5 days. She states it does not feel like it's improving. Patient states it does not feel like her eardrops are going in her ear. She reports no fevers or chills no pain behind her ear she states it is swollen in front of her ear. Patient does not follow-up with PCP. Patient denies any neck pain, neck stiffness, headache or dizziness. - Related Data Home Medications Medication Instructions Recorded Confirmed Cholecalciferol [Vitamin D3] 5,000 unit PO DAILY 01/21/17 01/04/18 Flaxseed Oil [[place]-3 Flaxseed Oil] 1,000 mg PO DAILY 01/21/17 01/04/18 Previous Rx's Medication Instructions Recorded Albuterol Sulfate [Proair Hfa] 1 - 2 puff INHALATION Q4HR PRN #1 01/04/18 inhaler Azithromycin [Zithromax Z-pack] 0 mg PO DIRECTED #1 pack 01/04/18 predniSONE 50 mg PO DAILY #5 tab 01/04/18 Ciprofloxacin-Dexameth [Ciprodex 4 drops RIGHT EAR BID 7 Days #1 11/23/19 Otic Susp] bottle Amoxicillin/Potassium Clav 1 tab PO Q12HR #20 tab 11/28/19 [Augmentin 875-125 Tablet] Allergies Allergy/AdvReac Type Severity Reaction Status Date / Time aspirin Allergy Anaphylaxis Verified 11/23/19 21:10 ibuprofen [From Motrin] Allergy Anaphylaxis Verified 11/23/19 21:10 Review of Systems ROS Statement: Those systems with pertinent positive or pertinent negative responses have been documented in the HPI. ROS Other: All systems not noted in ROS Statement are negative. Past Medical History Past Medical History: Diabetes Mellitus History of Any Multi-Drug Resistant Organisms: None Reported Past Surgical History: Cholecystectomy, Hysterectomy Additional Past Surgical History / Comment(s): mass removed from (R) ovary. Past Psychological History: No Psychological Hx Reported Smoking Status: Never smoker Past Alcohol Use History: None Reported Past Drug Use History: None Reported General Exam Limitations: no limitations General appearance: alert, in no apparent distress Head exam: Present: atraumatic, normocephalic, normal inspection Eye exam: Present: normal appearance, PERRL, EOMI. Absent: scleral icterus, conjunctival injection, periorbital swelling ENT exam: Present: normal oropharynx, mucous membranes moist. Absent: normal exam, TM's normal bilaterally (Mild erythema in the right), normal external ear exam (Swelling and exudates noted on the right there is no mastoid tenderness no erythema the mastoid) Neck exam: Present: normal inspection, full ROM. Absent: tenderness, meningismus, lymphadenopathy Respiratory exam: Present: normal lung sounds bilaterally. Absent: respiratory distress, wheezes, rales, rhonchi, stridor Cardiovascular Exam: Present: regular rate, normal rhythm, normal heart sounds. Absent: systolic murmur, diastolic murmur, rubs, gallop, clicks Course Vital Signs 11/28/19 14:30 Temperature 97.4 F L Pulse Rate 80 Respiratory 19 Rate Blood Pressure 147/96 O2 Sat by Pulse 98 Oximetry Procedures - Procedures Initial comment: Right ear Merocel jose alejandro wick was placed using forceps with no complications Medical Decision Making - Medical Decision Making Patient has persistent otitis externa with mild otitis media it work was placed in a right external auditory canal she was advised to have this removed in 3-4 days. She'll follow-up with ENT. Return parameters were discussed. Disposition Clinical Impression: Right otitis externa, Otitis media Disposition: HOME SELF-CARE Condition: Stable Instructions (If sedation given, give patient instructions): Earache (ED) Additional Instructions: Follow-up with ENT or your PCP to have ear wick removed.Please return to the Emergency Department if symptoms worsen or any other concerns. Prescriptions: Amoxicillin/Potassium Clav [Augmentin 875-125 Tablet] 1 tab PO Q12HR #20 tab Is patient prescribed a controlled substance at d/c from ED?: No Referrals: Samuel Crowder MD [Primary Care Provider] - 1-2 days Hunter Schulte DO [Doctor of Osteopathic Medicine] - 1-2 days Time of Disposition: 14:50
== END 2019-11-28 15:16 | disposition home or self-care (01) ==
LOC: EC 14:25
DX: H60.91 Unspecified otitis externa, right ear (principal); H66.91 Otitis media, unspecified, right ear; Z88.6 Allergy status to analgesic agent
CPT/HCPCS: 99282

== ENCOUNTER 2020-04-27 16:56 | Inpatient (IN) | payer OTHER, MEDICARE ==
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
[2020-04-27 17:16] LABS: Glucose,Whole Blood 131 mg/dL (75-99)
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
[2020-04-27 19:27] LABS: Basophils % (A) 0 %; Eosinophils # (A) 0.3 k/uL (0-0.7); Eosinophils % (A) 3 %; HGB 14.9 gm/dL (11.4-16.0); Lymphocytes # (A) 1.1 k/uL (1.0-4.8); Lymphocytes % (A) 12 %; MCH 30.7 pg (25.0-35.0); MCHC 33.8 g/dL (31.0-37.0); MCV 90.7 fL (80.0-100.0); Mean Platelet Volume 7.1; Monocytes # (A) 0.6 k/uL (0-1.0); Monocytes % (A) 6 %; Neutrophils % (A) 77 %; Platelet Count 270 k/uL (150-450); RBC 4.85 m/uL (3.80-5.40); RDW 12.7 % (11.5-15.5); WBC 9.1 k/uL (3.8-10.6)
[2020-04-27 19:36] LABS: Calcium 9.6 mg/dL (8.4-10.2); Potassium 4.3 mmol/L (3.5-5.1)
[2020-04-27] MEDS ORDERED: NALOXONE 0.4 MG/ML 1 ML VIAL IV PRN (20:07)
[2020-04-27] MEDS ORDERED: SODIUM CHLORIDE 0.9% 1,000 ML IV SCH (20:15)
[2020-04-27] MEDS: ACETAMINOPHEN TAB 325 MG TAB PO PRN (21:06)
[2020-04-27] MEDS ORDERED: HYDROcodone/APAP 5-325MG 1 EACH TAB PO PRN (21:22)
[2020-04-27] MEDS ORDERED: HYDROmorphone 0.5 MG/0.5 ML SYRINGE IVP PRN (21:23)
[2020-04-28] MEDS: ACETAMINOPHEN TAB 325 MG TAB PO PRN ×2 (02:55→06:54)
[2020-04-28 04:29] VITALS: RESP 18
[2020-04-28 06:20] LABS: Glucose,Whole Blood 108 mg/dL (75-99)
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
[2020-04-28 10:43] VITALS: BP 151/70; PULSE 65; TEMP 96.7
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
== END 2020-04-28 11:47 | disposition home or self-care (01) | DRG 565 ==
LOC: EC 16:56 → 3SCARD 20:07
PROVIDERS: ADMIT Surgery; ATTEND Surgery
DX: S22.23XA Sternal manubrial dissociation, initial encounter for closed fracture (principal); J98.11 Atelectasis; E66.9 Obesity, unspecified; E11.9 Type 2 diabetes mellitus without complications; M43.12 Spondylolisthesis, cervical region; Z11.59 Encounter for screening for other viral diseases; V43.52XA Car driver injured in collision with other type car in traffic accident, initial encounter; Y92.410 Unspecified street and highway as the place of occurrence of the external cause; Z68.33 Body mass index [BMI] 33.0-33.9, adult; Z90.710 Acquired absence of both cervix and uterus; Z90.49 Acquired absence of other specified parts of digestive tract; Z98.890 Other specified postprocedural states; Z82.3 Family history of stroke; Z80.9 Family history of malignant neoplasm, unspecified; Z88.6 Allergy status to analgesic agent; Z88.8 Allergy status to other drugs, medicaments and biological substances
CPT/HCPCS: 36415; 70450; 71250; 72125; 72170; 80048; 84484; 85025; 93005; 99285

== ENCOUNTER 2020-05-07 22:49 | Observation (INO) | payer OTHER, MEDICARE ==
[2020-05-07] MEDS ORDERED: SODIUM CHLORIDE 0.9% 1,000 ML IV STA ×2 (23:24)
[2020-05-07] MEDS ORDERED: MORPHINE SULFATE 4 MG/ML SYRINGE IV STA (23:24)
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
[2020-05-07 23:43] LABS: Basophils % (A) 1 %; Eosinophils # (A) 0.4 k/uL (0-0.7); Eosinophils % (A) 6 %; HCT 43.5 % (34.0-46.0); HGB 14.4 gm/dL (11.4-16.0); Lymphocytes # (A) 2.2 k/uL (1.0-4.8); Lymphocytes % (A) 28 %; MCH 30.1 pg (25.0-35.0); MCV 91.1 fL (80.0-100.0); Mean Platelet Volume 7.6; Monocytes # (A) 0.6 k/uL (0-1.0); Monocytes % (A) 7 %; Neutrophils # (A) 4.5 k/uL (1.3-7.7); Neutrophils % (A) 58 %; Platelet Count 315 k/uL (150-450); RBC 4.77 m/uL (3.80-5.40); RDW 13.2 % (11.5-15.5); WBC 7.8 k/uL (3.8-10.6)
[2020-05-07 23:51] LABS: Albumin 4.6 g/dL (3.5-5.0); Calcium 9.6 mg/dL (8.4-10.2); Magnesium 2.2 mg/dL (1.6-2.3); Potassium 4.1 mmol/L (3.5-5.1); Total Bilirubin 0.5 mg/dL (0.2-1.3); Total Protein 7.6 g/dL (6.3-8.2)
[2020-05-07 23:56] LABS: INR 0.9 (<1.2); Partial Thromboplastin Time 24.1 sec (22.0-30.0); Prothrombin Time 9.8 sec (9.0-12.0)
[2020-05-08 00:02] LABS: D-Dimer 1.03 mg/L FEU (<0.60)
--- NOTE | 2020-05-08 01:18 | CT ---
EXAMINATION TYPE: CT angio chest DATE OF EXAM: 05/08/2020 COMPARISON: 04/27/2020 HISTORY: Chest pain CT DLP: 694.3 mGycm Automated exposure control for dose reduction was used. CONTRAST: Performed with IV Contrast, patient injected with 63 mL of Isovue 370. There are 3-D post processed images. Images were obtained from the thoracic inlet to the diaphragm with IV contrast. There is coarse groundglass interstitial infiltrates in the lungs. Heart is enlarged. There is no per icardial effusion. There is small left pleural effusion. I see no filling defects in the pulmonary arteries. Thoracic aorta is atheromatous. There is no media stinal adenopathy. There are no hilar masses. There is mildly displaced fracture of the manubrium unchanged. The thoracic spine is intact. The ribs appear intact. IMPRESSION: No evidence of pulmonary embolism. Small left pleural effusion with groundglass interstitial pulmonar y infiltrates increased compared to recent exam. Manubrium fracture unchanged.
[2020-05-08] MEDS ORDERED: PNEUMONIA PROTOCOL UTILIZED 1 EACH MISC PO PRN (01:40)
[2020-05-08] MEDS ORDERED: MORPHINE SULFATE 4 MG/ML SYRINGE IV PRN (01:40)
[2020-05-08] MEDS ORDERED: AZITHROMYCIN 500 MG in SODIUM CHLORIDE 0.9% 250 ML IVPB STA (01:40)
[2020-05-08] MEDS ORDERED: ONDANSETRON 4 MG/2 ML VIAL IVP PRN (02:26)
[2020-05-08] MEDS ORDERED: LORazepam 2 MG/ML INJ IV PRN (02:27)
[2020-05-08 03:11] VITALS: RESP 16
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
[2020-05-08 12:11] VITALS: BP 137/78; PULSE 73; TEMP 97.9
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
[2020-05-09] MEDS ORDERED: AZITHROMYCIN 500 MG TAB PO SCH (01:41)
== END 2020-05-08 14:30 | disposition home or self-care (01) ==
LOC: EC 22:49 → 1SOBS 05-08 01:42
PROVIDERS: ADMIT Hospitalist; ATTEND Hospitalist
DX: S22.23XA Sternal manubrial dissociation, initial encounter for closed fracture (principal); S13.4XXA Sprain of ligaments of cervical spine, initial encounter; R91.8 Other nonspecific abnormal finding of lung field; E66.9 Obesity, unspecified; E11.9 Type 2 diabetes mellitus without complications; G89.29 Other chronic pain; M54.2 Cervicalgia; I49.3 Ventricular premature depolarization; I08.3 Combined rheumatic disorders of mitral, aortic and tricuspid valves; Z68.31 Body mass index [BMI] 31.0-31.9, adult; Z03.818 Encounter for observation for suspected exposure to other biological agents ruled out; Z79.899 Other long term (current) drug therapy; Z88.6 Allergy status to analgesic agent; Z90.49 Acquired absence of other specified parts of digestive tract; Z90.710 Acquired absence of both cervix and uterus; Z98.890 Other specified postprocedural states; Z87.42 Personal history of other diseases of the female genital tract; Z82.3 Family history of stroke; Z80.9 Family history of malignant neoplasm, unspecified; V89.2XXA Person injured in unspecified motor-vehicle accident, traffic, initial encounter
CPT/HCPCS: 93005 ×2; 96361 ×3; 96366; 96367; 96375 ×2; 96365; 99285; 36415; 93306; 85379; 83880; 80053; 83690; 83735; 84484 ×2; 85025; 85610; 85730; 87040; 71275; G0378; U0003; J2270; J2405; J0456; J0696 ×2; Q9967

== ENCOUNTER → 2020-07-09 | Outpatient (CLI) | payer OTHER, MEDICARE ==
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
== END | disposition home or self-care (01) ==
LOC: RAD 15:21
PROVIDERS: ATTEND Family Medicine
DX: S22.2 Fracture of sternum (principal)
CPT/HCPCS: 71046; 71120

== ENCOUNTER → 2021-06-23 | Outpatient (CLI) | payer MEDICARE ==
--- NOTE | 2021-06-25 07:44 | MM ---
Reason for exam: screening (asymptomatic). Last mammogram was performed 3 years and 4 months ago. History: Patient is postmenopausal. Benign excisional biopsy of the right breast. Physical Findings: A clinical breast exam by your physician is recommended on an annual basis and results should be correlated with mammographic findings. MG 3D Screening Mammo W/Cad Bilateral CC and MLO view(s) were taken. Prior study comparison: February 17, 2018, bilateral MG screening mammo w CAD. December 10, 2015, bilateral MG screening mammo w CAD. There are scattered fibroglandular densities. Stable mole posterior left upper outer quadrant. No significant changes when compared with prior studies. ASSESSMENT: Negative, BI-RAD 1 RECOMMENDATION: Routine screening mammogram of both breasts in 1 year.
== END | disposition home or self-care (01) ==
LOC: RADMAMWWP 15:43
PROVIDERS: ATTEND Family Medicine
DX: Z12.31 Encounter for screening mammogram for malignant neoplasm of breast (principal); Z78.0 Asymptomatic menopausal state
CPT/HCPCS: 77063; 77067

== ENCOUNTER → 2022-10-13 | Outpatient (CLI) | payer MEDICARE ==
--- NOTE | 2022-10-14 08:42 | MM ---
Reason for Exam: Screening (asymptomatic). Last mammogram was performed 1 year(s) and 4 month(s) ago. Patient History: Menarche at age 12. First Full-Term at age 23. Left ovary removed at age 68. Hysterectomy at age 35. Postmenopausal. Benign Excisional Biopsy on the right side. Risk Values: [place] 5 year model risk: 1.7%. NCI Lifetime model risk: 2.5%. Prior Study Comparison: 12/10/2015 Bilateral Screening Mammogram, [facility]. 02/17/2018 Bilateral Screening Mammogram, [facility]. 06/23/2021 Bilateral Screening Mammogram, [facility]. Tissue Density: There are scattered fibroglandular densities. Findings: Analyzed By CAD. There is no suspicious new group of microcalcifications or new suspicious mass in either breast. Overall Assessment: Negative, BI-RAD 1 Management: Screening Mammogram of both breasts in 1 year. A clinical breast exam by your physician is recommended on an annual basis and results should be correlated with mammographic findings. Electronically signed and approved by: Claudio Khan M.D.
== END | disposition home or self-care (01) ==
LOC: RADMAMWWP 13:20
PROVIDERS: ATTEND Family Medicine
DX: Z12.31 Encounter for screening mammogram for malignant neoplasm of breast (principal); Z78.0 Asymptomatic menopausal state; Z90.721 Acquired absence of ovaries, unilateral
CPT/HCPCS: 77063; 77067

== ENCOUNTER 2024-09-21 10:59 | Inpatient (IN) | payer MEDICARE ==
[2024-09-21] MEDS ORDERED: VANCOMYCIN IV PER PHARMACY 1 EACH MISC MISCELLANE PRN (11:40)
[2024-09-21 11:54] LABS: Basophils % (A) 0 %; Eosinophils # (A) 0.1 k/uL (0-0.7); Eosinophils % (A) 1 %; HGB 14.3 gm/dL (11.4-16.0); Lymphocytes # (A) 0.5 k/uL (1.0-4.8); Lymphocytes % (A) 5 %; MCH 31.2 pg (25.0-35.0); MCHC 33.9 g/dL (31.0-37.0); MCV 91.9 fL (80.0-100.0); Mean Platelet Volume 7.7; Monocytes # (A) 0.4 k/uL (0-1.0); Monocytes % (A) 4 %; Neutrophils # (A) 9.9 k/uL (1.3-7.7); Neutrophils % (A) 90 %; Platelet Count 196 k/uL (150-450); RBC 4.57 m/uL (3.80-5.40); RDW 13.5 % (11.5-15.5); WBC 11.1 k/uL (3.8-10.6)
[2024-09-21 12:12] LABS: ALT 30 U/L (4-34); AST 42 U/L (14-36); African American GFR (CKD) >90 (>60 ml/min/1.73 sqM); Albumin 4.1 g/dL (3.5-5.0); Alkaline Phosphatase 101 U/L (38-126); Anion Gap 10 mmol/L; Blood Urea Nitrogen 10 mg/dL (7-17); Calcium 8.6 mg/dL (8.4-10.2); Carbon Dioxide 21 mmol/L (22-30); Chloride 103 mmol/L (98-107); Glucose 122 mg/dL (74-99); Magnesium 1.8 mg/dL (1.6-2.3); Non-African American GFR(CKD) 83 (>60 ml/min/1.73 sqM); Potassium 4.2 mmol/L (3.5-5.1); Sodium 134 mmol/L (137-145); Total Bilirubin 1.2 mg/dL (0.2-1.3); Total Protein 6.6 g/dL (6.3-8.2)
[2024-09-21] MEDS: ACETAMINOPHEN TAB 500 MG TAB PO STA (12:14)
[2024-09-21] MEDS: SODIUM CHLORIDE 0.9% 1,000 ML IV STA ×3 (12:18→15:33)
[2024-09-21] MEDS: ONDANSETRON 4 MG/2 ML VIAL IM STA (12:20)
[2024-09-21 12:32] LABS: INR 1.1 (<1.2); Partial Thromboplastin Time 25.3 sec (22.0-30.0); Prothrombin Time 11.9 sec (10.0-12.5)
[2024-09-21] MEDS: IPRATROPIUM-ALBUTEROL 3 ML NEB INHALATION STA (13:09)
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
[2024-09-21] MEDS: VANCOMYCIN 1,500 MG in SODIUM CHLORIDE 0.9% 500 ML 500 ML IVPB STA (13:21)
--- NOTE | 2024-09-21 13:27 | XR ---
EXAMINATION TYPE: XR chest 2V DATE OF EXAM: 09/21/2024 1:17 PM COMPARISON: Chest radiographs from 07/09/2020 CLINICAL INDICATION: Female, 83 years old with history of Weakness; [facility] TECHNIQUE: XR chest 2V Frontal and lateral views of the chest. FINDINGS: Lungs/Pleura: Multifocal airspace opacities. No evidence of pneumothorax or pleural effusion. Pulmonary vascularity: Unremarkable. Heart/mediastinum: Cardiomediastinal silhouette is enlarged and stable. Musculoskeletal: No acute osseous pathology. IMPRESSION: Scattered airspace opacities throughout the lungs correlate for congestive heart failure versus multi focal pneumonia.. [facility], , 09/21/2024 1:25 PM
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
[2024-09-21] MEDS ORDERED: NALOXONE 0.4 MG/ML 1 ML VIAL IV PRN (13:54)
[2024-09-21] MEDS ORDERED: PNEUMONIA PROTOCOL UTILIZED 1 EACH MISC PO PRN (13:56)
[2024-09-21] MEDS ORDERED: IPRATROPIUM-ALBUTEROL 3 ML NEB INHALATION PRN (13:56)
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
[2024-09-21] MEDS: IPRATROPIUM-ALBUTEROL 3 ML NEB INHALATION SCH (15:10)
[2024-09-21] MEDS: PIPERACILLIN-TAZOBACTAM 3.375 GM in SODIUM CHLORIDE 0.9% 100 ML IVPB SCH (15:33)
[2024-09-21] MEDS: SODIUM CHLORIDE 0.9% 1,000 ML IV SCH (16:10)
[2024-09-21 16:39] LABS: Appearance,Urine Cloudy (Clear); Bacteria,Urine Many /hpf; Bilirubin,Urine Negative (Negative); Blood,Urine Negative (Negative); Color,Urine Colorless; Glucose,Urine (UA) Negative (Negative); Ketones,Urine Negative (Negative); Leukocyte Esterase,Urine Large (Negative); Mucus,Urine Rare /hpf; Nitrite,Urine Negative (Negative); Protein,Urine Negative (Negative); RBC,Urine 4 /hpf (0-5); Squamous Epithelial Cell,Urine <1 /hpf (0-4); Urobilinogen,Urine <2.0 mg/dL (<2.0); WBC,Urine 6 /hpf (0-5)
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
[2024-09-21] MEDS: AZITHROMYCIN 500 MG TAB PO SCH (17:25)
[2024-09-21] MEDS: ONDANSETRON 4 MG/2 ML VIAL IVP PRN (18:35)
[2024-09-21] MEDS: ACETAMINOPHEN TAB 325 MG TAB PO PRN (18:38)
[2024-09-21 20:18] LABS: Glucose,Whole Blood 116 mg/dL (70-110)
[2024-09-21] MEDS: guaiFENesin SYRUP 100MG/5ML 200 MG/10 ML CUP PO PRN (20:39)
[2024-09-22 05:18] LABS: Mycoplasma IgG Antibody (EIA) 0.32 INDEX (<=0.90); Mycoplasma IgM Antibody 0.35 INDEX (<=0.90)
[2024-09-22 06:28] LABS: Glucose,Whole Blood 102 mg/dL (70-110)
[2024-09-22 08:49] LABS: Basophils # (A) 0.03 X 10*3/uL (0.00-0.10); Basophils % (A) 0.3 %; Eosinophils # (A) 0.03 X 10*3/uL (0.04-0.35); Eosinophils % (A) 0.3 %; HCT 36.7 % (37.2-46.3); HGB 12.6 g/dL (12.0-15.0); Lymphocytes # (A) 0.75 X 10*3/uL (0.90-5.00); Lymphocytes % (A) 7.3 %; MCH 31.4 pg (27.0-32.0); MCHC 34.3 g/dL (32.0-37.0); MCV 91.5 FL (80.0-97.0); Mean Platelet Volume 9.8 FL (9.5-12.2); Monocytes # (A) 0.94 X 10*3/uL (0.20-1.00); Monocytes % (A) 9.1 %; NRBC Per 100 WBC 0 X 10*3/uL (0.00-0.01); Neutrophils # (A) 8.51 X 10*3/uL (1.80-7.70); Neutrophils % (A) 82.6 %; Platelet Count 178 X 10*3/uL (140-440); RBC 4.01 X 10*6/uL (4.10-5.20); RDW 13.8 % (11.5-14.5)
--- NOTE | 2024-09-22 08:53 | XR ---
EXAMINATION TYPE: XR chest 1V portable DATE OF EXAM: 09/22/2024 5:18 AM COMPARISON: Chest radiographs from 09/21/2024 CLINICAL INDICATION: Female, 83 years old with history of pneumonia; [facility] TECHNIQUE: XR chest 1V portable Frontal view of the chest. FINDINGS: Lungs/Pleura: Multifocal airspace opacities. No evidence of pneumothorax or pleural effusion. Pulmonary vascularity: Pulmonary vascular congestion. Heart/mediastinum: Cardiomediastinal silhouette is enlarged and stable. Musculoskeletal: No acute osseous pathology. IMPRESSION: Scattered airspace opacities throughout the lungs correlate for congestive heart failure versus multi focal pneumonia.. [facility], , 09/22/2024 8:50 AM
[2024-09-22 08:57] LABS: ALT 31 U/L (8-44); AST 62 U/L (13-35); Albumin 3.4 g/dL (3.8-4.9); Albumin/Globulin Ratio 1.89 Ratio (1.60-3.17); Alkaline Phosphatase 78 U/L (41-126); BUN/Creat Ratio 15.67 Ratio (12.00-20.00); Blood Urea Nitrogen 9.4 mg/dL (9.0-27.0); Calcium 7.9 mg/dL (8.7-10.3); Carbon Dioxide 21.8 mmol/L (21.6-31.8); Chloride 106 mmol/L (96-109); Globulin 1.8 g/dL (1.6-3.3); Glucose 129 mg/dL (70-110); Potassium 3.8 mmol/L (3.5-5.5); Sodium 137 mmol/L (135-145); Total Bilirubin 0.8 mg/dL (0.3-1.2); Total Protein 5.2 g/dL (6.2-8.2)
[2024-09-22] MEDS ORDERED: NON FORMULARY DRUG (Flaxseed Oil [Omega-3 Flaxseed Oil] 1,000 MG Capsule) PO SCH (09:00)
[2024-09-22] MEDS: ENOXAPARIN 40 MG/0.4 ML SYRINGE SQ SCH (09:29)
[2024-09-22] MEDS: CHOLECALCIFEROL 25 MCG (1000 IU) TABLET PO SCH (09:29)
[2024-09-22] MEDS: ATORVASTATIN 20 MG TAB PO SCH (09:30)
[2024-09-22] MEDS: MULTIVITAMINS, THERA 1 EACH TAB PO SCH (09:31)
[2024-09-22] MEDS: FUROSEMIDE 10 MG/ML 2 ML VIAL IV ONE (10:24)
--- NOTE | 2024-09-22 11:10 | P.PN ---
Subjective Progress Note Date: 09/22/24 Hospital Course Patient is a very pleasant 83-year-old female with a past medical history of hyperlipidemia and diet-controlled diabetes mellitus. She presented to the emergency department with a chief complaint of shortness of breath, cough, generalized weakness and fall at home. Patient reports shortness of breath and nonproductive cough started on Wednesday and have progressively worsened. She reports she began running a fever on Wednesday and just progressively got weaker . Today, patient reports ambulating to restroom and felt so weak her legs just gave out on her. She reports falling forward and hitting her head. She denies having any loss of consciousness or experiencing any reported injuries from fall, but states she was just too weak to get up. She denies having any known exposure to ill contacts and denies anyone else in the home being sick. Patient reports a history of pneumonia 50 years ago but states no issues since. She denies having any headache, lightheadedness, dizziness, changes in vision or hearing, chest pain or palpitations, abdominal pain, nausea, vomiting, or experiencing any numbness/tingling/weakness/swelling in her extremities. Upon arrival to our facility, patient underwent evaluation in the emergency department. Vital signs upon arrival show blood pressure 168/77, heart rate 100, respiratory rate 28, temp 100.8 F, and SpO2 of 90% on room air increasing to 94% on 2 L. EKG completed showing sinus tachycardia at 101 bpm with T wave inversion in lateral leads I and aVL. Chest x-ray completed showing scattered airspace opacities throughout the lungs consistent with multifocal pneumonia. Labs completed and reviewed. CBC showing leukocytosis with WBC count of 11.1. Initial lactic was 2.4. Influenza A, influenza B, RSV, and COVID PCR were negative. Patient started on IV antibiotics and admitted under our services with consultation to pulmonology. Patient seen this morning. She states that she still has a cough and feels short of breath. She is currently on 3 L nasal cannula. She denies wearing oxygen at home. Physical exam General examination - Alert and Oriented 3 in NAD, appears critically ill Heart - + S1S2 no murmurs Lungs -no wheezing bilaterally Abdomen soft NT ND +ve BS Extremities - No edema SKI TECHNICIAN - Moving all 4 extremities spontaneously Psych - Calm and cooperative Assessment and plan Multifocal pneumonia Sepsis on admission secondary to above Elevated lactic acid, secondary to above; resolved Leukocytosis with fever, secondary to above; improving -Patient currently still requiring high amounts of oxygen and she is on 3 L nasal cannula satting 93%. Patient's Tmax in the last 24 hours is 102. Patient still has shortness of breath and symptoms not improving. -Telemetry monitoring. -Monitor pulse-oximetry -Duonebs scheduled 4 times daily as needed for SOB and/or wheezing -Incentive Spirometry -Continue with Rocephin 1 g every 24 hours and azithromycin 500 mg daily. -Follow-up on blood culture -I reviewed procalcitonin which is 0.45 -I reviewed WBC which is 10.3. Improving -I reviewed Legionella antigen which is negative to date -I reviewed lactic acid which is 1.5 and has normalized. Patient is normotensiv e -I reviewed pulmonology note which recommends to continue the IV antibiotics -I independently interpreted the chest x-ray done this morning that appears similar to previous x-ray showing the scattered airspace opacities. -Guaifenesin 200 mg every 6 hours as needed for cough. -Start Tessalon Perles 200 mg p.o. 3 times daily as needed for cough -Trend CBC and BMP Hyperlipidemia Continue daily medication regimen with atorvastatin 20 mg daily. DVT prophylaxis: Lovenox 40 mg subcu Anticipated discharge: Depending on hospital course Anticipated discharge location: Will consult PT OT Objective - Vital Signs Vital signs: Vital Signs Temp 97.5 F L 09/22/24 07:40 Pulse 85 09/22/24 08:14 Resp 16 09/22/24 08:14 BP 147/69 09/22/24 07:40 Pulse Ox 93 L 09/22/24 08:04 FiO2 Intake & Output 09/21/24 09/22/24 09/22/24 18:59 06:59 18:59 Intake Total 750 Output Total 550 Balance 200 Weight 86.183 kg 91 kg Intake: Oral 750 Output: Urine 550 Other: Voiding Method External Catheter External Catheter # Voids 2 - Labs CBC & Chem 7: 09/22/24 03:53 09/22/24 03:53 Labs: Abnormal Lab Results - Last 24 Hours (Table) 09/21/24 09/21/24 09/21/24 Range/Units 11:42 11:42 11:42 WBC 11.1 H (3.8-10.6) k/uL RBC (4.10-5.20) X 10*6/uL Hct (37.2-46.3) % Neutrophils # 9.9 H (1.3-7.7) k/uL Lymphocytes # 0.5 L (1.0-4.8) k/uL Eosinophils # (0.04-0.35) X 10*3/uL Sodium 134 L (137-145) mmol/L Carbon Dioxide 21 L (22-30) mmol/L Glucose 122 H (74-99) mg/dL POC Glucose (mg/dL) (70-110) mg/dL Plasma Lactic Acid Aldo (0.7-2.0) mmol/L Calcium (8.7-10.3) mg/dL AST 42 H (14-36) U/L Total Protein (6.2-8.2) g/dL Albumin (3.8-4.9) g/dL Urine Appearance Cloudy H (Clear) Ur Leukocyte Esterase Large H (Negative) Urine WBC 6 H (0-5) /hpf Urine Bacteria Many H (None) /hpf Urine Mucus Rare H (None) /hpf 09/21/24 09/21/24 09/22/24 Range/Units 11:42 20:17 03:53 WBC 10.30 H (3.8-10.6) k/uL RBC 4.01 L (4.10-5.20) X 10*6/uL Hct 36.7 L (37.2-46.3) % Neutrophils # 8.51 H (1.3-7.7) k/uL Lymphocytes # 0.75 L (1.0-4.8) k/uL Eosinophils # 0.03 L (0.04-0.35) X 10*3/uL Sodium (137-145) mmol/L Carbon Dioxide (22-30) mmol/L Glucose (74-99) mg/dL POC Glucose (mg/dL) 116 H (70-110) mg/dL Plasma Lactic Acid Aldo 2.4 H* (0.7-2.0) mmol/L Calcium (8.7-10.3) mg/dL AST (14-36) U/L Total Protein (6.2-8.2) g/dL Albumin (3.8-4.9) g/dL Urine Appearance (Clear) Ur Leukocyte Esterase (Negative) Urine WBC (0-5) /hpf Urine Bacteria (None) /hpf Urine Mucus (None) /hpf 09/22/24 Range/Units 03:53 WBC (3.8-10.6) k/uL RBC (4.10-5.20) X 10*6/uL Hct (37.2-46.3) % Neutrophils # (1.3-7.7) k/uL Lymphocytes # (1.0-4.8) k/uL Eosinophils # (0.04-0.35) X 10*3/uL Sodium (137-145) mmol/L Carbon Dioxide (22-30) mmol/L Glucose 129 H (74-99) mg/dL POC Glucose (mg/dL) (70-110) mg/dL Plasma Lactic Acid Aldo (0.7-2.0) mmol/L Calcium 7.9 L (8.7-10.3) mg/dL AST 62 H (14-36) U/L Total Protein 5.2 L (6.2-8.2) g/dL Albumin 3.4 L (3.8-4.9) g/dL Urine Appearance (Clear) Ur Leukocyte Esterase (Negative) Urine WBC (0-5) /hpf Urine Bacteria (None) /hpf Urine Mucus (None) /hpf
[2024-09-22 11:50] LABS: Glucose,Whole Blood 88 mg/dL (70-110)
[2024-09-22] MEDS ORDERED: VANCOMYCIN 1,500 MG in SODIUM CHLORIDE 0.9% 500 ML 500 ML IVPB SCH (12:00)
[2024-09-22] MEDS: BENZONATATE 100 MG CAP PO PRN (12:21)
--- NOTE | 2024-09-22 12:38 | P.PN ---
Subjective Progress Note Date: 09/22/24 This is a very pleasant 83-year-old female patient with a history of hyperlipidemia. Lifelong non-smoker. She had presented here to the emergency room earlier today following a ground-level fall secondary to generalized weakness. Did hit her head on the ground. CT scan of the head revealed no acute intracranial process. She had been not feeling well since 3 days ago where she developed increasing shortness of breath, cough and congestion. Has had filler fever and chills. Nonproductive cough. Denies any nausea vomiting or diarrhea. No recent travels. No sick contacts. Chest x-ray does reveal airspace opacities bilaterally. Current temperature 101.6. O2 saturations in the 90s on 2 L/min per nasal cannula. White count 11.1. Hemoglobin 14.3. Platelets 196. Sodium 134. Potassium 4.2. Bicarb 21. BUN 10. Creatinine 0.63. Glucose 122. Lactic acid 2.4. Viral screen is negative. Currently sitting up on the stretcher. Awake and alert in no acute distress. No altered mentation. The patient is seen today September 22, 2024 in follow-up on the regular medical floor. She is awake and alert in no acute distress. Sitting up in a chair at the bedside. Doing a bit better today compared to yesterday. Not quite back to her baseline. She is maintaining O2 saturations in the 90s on 2 L/min per nasal cannula. Procalcitonin was 0.45. She remains on ceftriaxone and azithromycin. Chest x-ray continues to show scattered airspace opacities throughout the lungs. White count 10.3. Hemoglobin 12.6. Platelets 178. Sodium 137. Potassium 3.8. Bicarb 22. BUN 9. Creatinine 0.6. Glucose 129. She is on Lovenox for DVT prophylaxis. Normal saline at 75 mL/h. Objective - Vital Signs Vital signs: Vital Signs Temp 97.5 F L 09/22/24 07:40 Pulse 88 09/22/24 11:30 Resp 18 09/22/24 11:30 BP 147/69 09/22/24 07:40 Pulse Ox 93 L 09/22/24 08:04 FiO2 Intake & Output 09/21/24 09/22/24 09/22/24 18:59 06:59 18:59 Intake Total 750 Output Total 550 750 Balance 200 -750 Weight 86.183 kg 91 kg Intake: Oral 750 Output: Urine 550 750 Other: Voiding Method External Catheter External Catheter # Voids 2 - Exam GENERAL EXAM: Alert, pleasant 83-year-old female, on 2 L nasal cannula, comfortable in no apparent distress. HEAD: Normocephalic. Abrasion on forehead. EYES: Normal reaction of pupils, equal size. NOSE: Clear with pink turbinates. THROAT: No erythema or exudates. NECK: No masses, no JVD. CHEST: No chest wall deformity. LUNGS: Equal air entry with bilateral scattered rhonchi. CVS: S1 and S2 normal with no audible murmur, regular rhythm. ABDOMEN: No hepatosplenomegaly, normal bowel sounds, no guarding or rigidity. SPINE: No scoliosis or deformity SKIN: No rashes CENTRAL NERVOUS SYSTEM: No focal deficits, tone is normal in all 4 extremities. EXTREMITIES: There is no peripheral edema. No clubbing, no cyanosis. Peripheral pulses are intact. - Labs CBC & Chem 7: 09/22/24 03:53 09/22/24 03:53 Labs: Abnormal Lab Results - Last 24 Hours (Table) 09/21/24 09/21/24 09/22/24 Range/Units 11:42 20:17 03:53 WBC 10.30 H (4.50-10.00) X 10*3/uL RBC 4.01 L (4.10-5.20) X 10*6/uL Hct 36.7 L (37.2-46.3) % Neutrophils # 8.51 H (1.80-7.70) X 10*3/uL Lymphocytes # 0.75 L (0.90-5.00) X 10*3/uL Eosinophils # 0.03 L (0.04-0.35) X 10*3/uL Glucose (70-110) mg/dL POC Glucose (mg/dL) 116 H (70-110) mg/dL Calcium (8.7-10.3) mg/dL AST (13-35) U/L Total Protein (6.2-8.2) g/dL Albumin (3.8-4.9) g/dL Urine Appearance Cloudy H (Clear) Ur Leukocyte Esterase Large H (Negative) Urine WBC 6 H (0-5) /hpf Urine Bacteria Many H (None) /hpf Urine Mucus Rare H (None) /hpf 09/22/24 Range/Units 03:53 WBC (4.50-10.00) X 10*3/uL RBC (4.10-5.20) X 10*6/uL Hct (37.2-46.3) % Neutrophils # (1.80-7.70) X 10*3/uL Lymphocytes # (0.90-5.00) X 10*3/uL Eosinophils # (0.04-0.35) X 10*3/uL Glucose 129 H (70-110) mg/dL POC Glucose (mg/dL) (70-110) mg/dL Calcium 7.9 L (8.7-10.3) mg/dL AST 62 H (13-35) U/L Total Protein 5.2 L (6.2-8.2) g/dL Albumin 3.4 L (3.8-4.9) g/dL Urine Appearance (Clear) Ur Leukocyte Esterase (Negative) Urine WBC (0-5) /hpf Urine Bacteria (None) /hpf Urine Mucus (None) /hpf Assessment and Plan Assessment: Acute hypoxic respiratory failure secondary to suspected bilateral community- acquired pneumonia. Procalcitonin 0.45. Viral screen negative Generalized weakness and fall secondary to above. CT scan revealed no acute intracranial process Febrile illness secondary to above Mild leukocytosis neck secondary to above Mild lactic acidosis secondary to above lifelong non-smoker Hyperlipidemia Plan: The patient was seen and evaluated Chest x-ray, labs and medications reviewed Give Lasix 40 mg IVP x 1 Decrease IV fluids to KVO Continue ceftriaxone and azithromycin Continue bronchodilator Lovenox for DVT prophylaxis We will continue to follow I have personally seen and examined the patient, performed the documentation and the assessment and plan as written. Number of minutes spent on the visit: 10 Dictation was produced using [employer] dictation software. Please excuse any grammatical, word or spelling errors.
[2024-09-22 16:48] LABS: Glucose,Whole Blood 104 mg/dL (70-110)
[2024-09-22 20:52] LABS: Glucose,Whole Blood 110 mg/dL (70-110)
[2024-09-23 06:08] LABS: Glucose,Whole Blood 105 mg/dL (70-110)
[2024-09-23 09:49] LABS: BUN/Creat Ratio 19.83 Ratio (12.00-20.00); Blood Urea Nitrogen 11.9 mg/dL (9.0-27.0); Carbon Dioxide 23.8 mmol/L (21.6-31.8); Chloride 106 mmol/L (96-109); Glucose 105 mg/dL (70-110); Potassium 3.7 mmol/L (3.5-5.5); Sodium 139 mmol/L (135-145)
[2024-09-23 09:50] LABS: Basophils # (A) 0.02 X 10*3/uL (0.00-0.10); Basophils % (A) 0.2 %; Eosinophils # (A) 0.25 X 10*3/uL (0.04-0.35); Eosinophils % (A) 3.1 %; HCT 37.9 % (37.2-46.3); HGB 12.4 g/dL (12.0-15.0); Lymphocytes # (A) 0.77 X 10*3/uL (0.90-5.00); Lymphocytes % (A) 9.4 %; MCH 30.5 pg (27.0-32.0); MCHC 32.7 g/dL (32.0-37.0); MCV 93.3 FL (80.0-97.0); Mean Platelet Volume 9.7 FL (9.5-12.2); Monocytes # (A) 0.83 X 10*3/uL (0.20-1.00); Monocytes % (A) 10.2 %; NRBC Per 100 WBC 0 X 10*3/uL (0.00-0.01); Neutrophils # (A) 6.25 X 10*3/uL (1.80-7.70); Neutrophils % (A) 76.5 %; Platelet Count 172 X 10*3/uL (140-440); RBC 4.06 X 10*6/uL (4.10-5.20); RDW 13.8 % (11.5-14.5); WBC 8.17 X 10*3/uL (4.50-10.00)
[2024-09-23 11:47] LABS: Glucose,Whole Blood 134 mg/dL (70-110)
--- NOTE | 2024-09-23 12:47 | P.PN ---
Subjective Progress Note Date: 09/23/24 This is a very pleasant 83-year-old female patient with a history of hyperlipidemia. Lifelong non-smoker. She had presented here to the emergency room earlier today following a ground-level fall secondary to generalized weakness. Did hit her head on the ground. CT scan of the head revealed no acute intracranial process. She had been not feeling well since 3 days ago where she developed increasing shortness of breath, cough and congestion. Has had filler fever and chills. Nonproductive cough. Denies any nausea vomiting or diarrhea. No recent travels. No sick contacts. Chest x-ray does reveal airspace opacities bilaterally. Current temperature 101.6. O2 saturations in the 90s on 2 L/min per nasal cannula. White count 11.1. Hemoglobin 14.3. Platelets 196. Sodium 134. Potassium 4.2. Bicarb 21. BUN 10. Creatinine 0.63. Glucose 122. Lactic acid 2.4. Viral screen is negative. Currently sitting up on the stretcher. Awake and alert in no acute distress. No altered mentation. The patient is seen today September 22, 2024 in follow-up on the regular medical floor. She is awake and alert in no acute distress. Sitting up in a chair at the bedside. Doing a bit better today compared to yesterday. Not quite back to her baseline. She is maintaining O2 saturations in the 90s on 2 L/min per nasal cannula. Procalcitonin was 0.45. She remains on ceftriaxone and azithromycin. Chest x-ray continues to show scattered airspace opacities throughout the lungs. White count 10.3. Hemoglobin 12.6. Platelets 178. Sodium 137. Potassium 3.8. Bicarb 22. BUN 9. Creatinine 0.6. Glucose 129. She is on Lovenox for DVT prophylaxis. Normal saline at 75 mL/h. The patient is seen today September 23, 2024 in follow-up on the regular medical floor. She is sitting up in a chair at the bedside. Awake and alert in no acute distress. Maintaining good O2 saturations in the 90s on 2 L/min per nasal cannula. She still has a loose congested cough. Blood culture reveals no gr owth. White count 8.1. Hemoglobin 12.4. Platelets 172. Sodium 139. Potassium 3.7. Bicarb 24. BUN 12. Creatinine 0.6. Glucose 105. She remains on DuoNeb inhalations. Antibiotics in the form of ceftriaxone. Lovenox for DVT prophylaxis. Robitussin for her cough. Objective - Vital Signs Vital signs: Vital Signs Temp 98.5 F 09/23/24 07:57 Pulse 92 09/23/24 10:13 Resp 17 09/23/24 07:57 BP 155/82 09/23/24 07:57 Pulse Ox 97 09/23/24 07:57 FiO2 Intake & Output 09/22/24 09/23/24 09/23/24 18:59 06:59 18:59 Output Total 750 Balance -750 Weight 92.5 kg Output: Urine 750 Other: Voiding Method External Catheter External Catheter External Catheter # Voids 3 - Exam GENERAL EXAM: Alert, 83-year-old female, up in a chair, on 2 L nasal cannula, in no apparent distress. HEAD: Normocephalic. Abrasion on forehead. EYES: Normal reaction of pupils, equal size. NOSE: Clear with pink turbinates. THROAT: No erythema or exudates. NECK: No masses, no JVD. CHEST: No chest wall deformity. LUNGS: Equal air entry with bilateral scattered rhonchi. CVS: S1 and S2 normal with no audible murmur, regular rhythm. ABDOMEN: No hepatosplenomegaly, normal bowel sounds, no guarding or rigidity. SPINE: No scoliosis or deformity SKIN: No rashes CENTRAL NERVOUS SYSTEM: No focal deficits, tone is normal in all 4 extremities. EXTREMITIES: There is no peripheral edema. No clubbing, no cyanosis. Peripheral pulses are intact. - Labs CBC & Chem 7: 09/23/24 06:28 09/23/24 06:28 Labs: Abnormal Lab Results - Last 24 Hours (Table) 09/23/24 09/23/24 09/23/24 Range/Units 06:28 06:28 11:45 RBC 4.06 L (4.10-5.20) X 10*6/uL Immature Gran # 0.05 H (0.00-0.04) X 10*3/uL Lymphocytes # 0.77 L (0.90-5.00) X 10*3/uL POC Glucose (mg/dL) 134 H (70-110) mg/dL Calcium 8.0 L (8.7-10.3) mg/dL Microbiology - Last 24 Hours (Table) 09/21/24 11:42 Blood Culture - Preliminary Blood Assessment and Plan Assessment: Acute hypoxic respiratory failure secondary to suspected bilateral community- acquired pneumonia. Procalcitonin 0.45. Viral screen negative Generalized weakness and fall secondary to above. CT scan revealed no acute intracranial process Febrile illness secondary to above Mild leukocytosis neck secondary to above Mild lactic acidosis secondary to above lifelong non-smoker Hyperlipidemia Plan: The patient was seen and evaluated Labs and medications reviewed Continue ceftriaxone and azithromycin Continue bronchodilators Robitussin for cough Lovenox for DVT prophylaxis Titrate down the FiO2 as tolerated We will continue to follow I have personally seen and examined the patient, performed the documentation and the assessment and plan as written. Number of minutes spent on the visit: 10 Dictation was produced using [employer] dictation software. Please excuse any grammatical, word or spelling errors.
--- NOTE | 2024-09-23 13:26 | P.PN ---
Subjective Progress Note Date: 09/23/24 Hospital Course: Patient is a very pleasant 83-year-old female with a past medical history of h yperlipidemia and diet-controlled diabetes mellitus. She presented to the emergency department with a chief complaint of shortness of breath, cough, generalized weakness and fall at home. Patient reports shortness of breath and nonproductive cough started on Wednesday and have progressively worsened. She reports she began running a fever on Wednesday and just progressively got weaker. Today, patient reports ambulating to restroom and felt so weak her legs just gave out on her. She reports falling forward and hitting her head. She denies having any loss of consciousness or experiencing any reported injuries from fall, but states she was just too weak to get up. She denies having any known exposure to ill contacts and denies anyone else in the home being sick. Patient reports a history of pneumonia 50 years ago but states no issues since. She denies having any headache, lightheadedness, dizziness, changes in vision or hearing, chest pain or palpitations, abdominal pain, nausea, vomiting, or experiencing any numbness/tingling/weakness/swelling in her extremities. Upon arrival to our facility, patient underwent evaluation in the emergency department. Vital signs upon arrival show blood pressure 168/77, heart rate 100, respiratory rate 28, temp 100.8 F, and SpO2 of 90% on room air increasing to 94% on 2 L. EKG completed showing sinus tachycardia at 101 bpm with T wave inversion in lateral leads I and aVL. Chest x-ray completed showing scattered airspace opacities throughout the lungs consistent with multifocal pneumonia. Labs completed and reviewed. CBC showing leukocytosis with WBC count of 11.1. Initial lactic was 2.4. Influenza A, influenza B, RSV, and COVID PCR were negative. Patient started on IV antibiotics and admitted under our services with consultation to pulmonology. Procalcitonin negative. Continue IV antibiotics. Subjective: Patient seen and examined at bedside. No acute events overnight. Still having fevers. Pertinent positives and negatives as discussed above, a complete review of systems was performed and all other systems are negative. Vitals Signs Reviewed. General: Nontoxic, no distress, appears at stated age Derm: Warm, dry Head: Atraumatic, normocephalic, symmetric Eyes: EOMI, no lid lag, anicteric sclera Mouth: No lip lesion, mucus membranes moist Cardiovascular: S1S2 reg, no murmur Lungs: Bilateral rales, no accessory muscle use, supplemental oxygen Abdominal: Soft, nontender to palpation, no guarding, no appreciable organomegaly Ext: No gross muscle atrophy, no edema, no contractures Neuro: CN II-XI grossly intact, no focal neuro deficits Psych: Alert, oriented, appropriate affect Data Reviewed Today: Pertinent Labs: WBC 8.17, creatinine 0.6, blood sugars range between 10 5-1 34 Imaging: No new imaging Assessment and Plan: Active: Acute hypoxic respiratory failure Multifocal pneumonia Sepsis on admission secondary to above Elevated lactic acid, secondary to above; resolved Leukocytosis, resolved Persistent fever -Continue to wean oxygen Pulmonology note reviewed, continue IV antibiotics -Patient on DuoNebs 4 times daily, every 4 hours as needed, ceftriaxone 1 g every 24 hours, status post azithromycin -Patient was given IV Lasix once yesterday Cultures negative growth to date Chronic: Dyslipidemia DVT ppx: Lovenox Code status: Full code Anticipated discharge place: Home Anticipated discharge time: 1 to 2 days Objective - Vital Signs Vital signs: Vital Signs Temp 98.5 F 09/23/24 07:57 Pulse 88 09/23/24 13:21 Resp 17 09/23/24 07:57 BP 155/82 09/23/24 07:57 Pulse Ox 97 09/23/24 07:57 FiO2 Intake & Output 09/22/24 09/23/24 09/23/24 18:59 06:59 18:59 Output Total 750 Balance -750 Weight 92.5 kg Output: Urine 750 Other: Voiding Method External Catheter External Catheter External Catheter # Voids 3 - Labs CBC & Chem 7: 09/23/24 06:28 09/23/24 06:28 Labs: Abnormal Lab Results - Last 24 Hours (Table) 09/23/24 09/23/24 09/23/24 Range/Units 06:28 06:28 11:45 RBC 4.06 L (4.10-5.20) X 10*6/uL Immature Gran # 0.05 H (0.00-0.04) X 10*3/uL Lymphocytes # 0.77 L (0.90-5.00) X 10*3/uL POC Glucose (mg/dL) 134 H (70-110) mg/dL Calcium 8.0 L (8.7-10.3) mg/dL Microbiology - Last 24 Hours (Table) 09/21/24 11:42 Blood Culture - Preliminary Blood
[2024-09-23 16:29] LABS: Glucose,Whole Blood 97 mg/dL (70-110)
[2024-09-23 21:49] LABS: Glucose,Whole Blood 105 mg/dL (70-110)
[2024-09-24] MEDS: FUROSEMIDE 10 MG/ML 4 ML VIAL IV STA (10:03)
--- NOTE | 2024-09-24 10:56 | P.PN ---
Subjective Progress Note Date: 09/24/24 Hospital Course: Patient is a very pleasant 83-year-old female with a past medical history of h yperlipidemia and diet-controlled diabetes mellitus. She presented to the emergency department with a chief complaint of shortness of breath, cough, generalized weakness and fall at home. Patient reports shortness of breath and nonproductive cough started on Wednesday and have progressively worsened. She reports she began running a fever on Wednesday and just progressively got weaker. Today, patient reports ambulating to restroom and felt so weak her legs just gave out on her. She reports falling forward and hitting her head. She denies having any loss of consciousness or experiencing any reported injuries from fall, but states she was just too weak to get up. She denies having any known exposure to ill contacts and denies anyone else in the home being sick. Patient reports a history of pneumonia 50 years ago but states no issues since. She denies having any headache, lightheadedness, dizziness, changes in vision or hearing, chest pain or palpitations, abdominal pain, nausea, vomiting, or experiencing any numbness/tingling/weakness/swelling in her extremities. Upon arrival to our facility, patient underwent evaluation in the emergency department. Vital signs upon arrival show blood pressure 168/77, heart rate 100, respiratory rate 28, temp 100.8 F, and SpO2 of 90% on room air increasing to 94% on 2 L. EKG completed showing sinus tachycardia at 101 bpm with T wave inversion in lateral leads I and aVL. Chest x-ray completed showing scattered airspace opacities throughout the lungs consistent with multifocal pneumonia. Labs completed and reviewed. CBC showing leukocytosis with WBC count of 11.1. Initial lactic was 2.4. Influenza A, influenza B, RSV, and COVID PCR were negative. Patient started on IV antibiotics and admitted under our services with consultation to pulmonology. Procalcitonin negative. Continue IV antibiotics. Subjective: Patient seen and examined at bedside. No acute events overnight. No further fevers. Pertinent positives and negatives as discussed above, a complete review of systems was performed and all other systems are negative. Vitals Signs Reviewed. General: Nontoxic, no distress, appears at stated age Derm: Warm, dry Head: Atraumatic, normocephalic, symmetric Eyes: EOMI, no lid lag, anicteric sclera Mouth: No lip lesion, mucus membranes moist Cardiovascular: S1S2 reg, no murmur Lungs: Bilateral rales, no accessory muscle use, supplemental oxygen Abdominal: Soft, nontender to palpation, no guarding, no appreciable organomegaly Ext: No gross muscle atrophy, no edema, no contractures Neuro: CN II-XI grossly intact, no focal neuro deficits Psych: Alert, oriented, appropriate affect Data Reviewed Today: Pertinent Labs: Blood sugars range between 97-1 34 Imaging: No new imaging Assessment and Plan: Active: Acute hypoxic respiratory failure Multifocal pneumonia Sepsis on admission secondary to above Elevated lactic acid, secondary to above; resolved Leukocytosis, resolved Persistent fever, resolved -Continue to wean oxygen -Pulmonology following, continue IV antibiotics -Patient on DuoNebs 4 times daily, every 4 hours as needed, ceftriaxone 1 g every 24 hours, status post azithromycin -Patient was given IV Lasix 40 once again today by pulmonology, monitor electrolytes -Cultures negative growth to date Chronic: Dyslipidemia DVT ppx: Lovenox Code status: Full code Anticipated discharge place: Home Anticipated discharge time: 1 to 2 days Objective - Vital Signs Vital signs: Vital Signs Temp 98.4 F 09/24/24 07:10 Pulse 74 09/24/24 08:18 Resp 22 09/24/24 07:10 BP 125/77 09/24/24 07:10 Pulse Ox 97 09/24/24 08:04 FiO2 Intake & Output 09/23/24 09/24/24 09/24/24 18:59 06:59 18:59 Intake Total 1620 Output Total 650 300 Balance -650 1320 Weight 93 kg Intake: Oral 1620 Output: Urine 650 300 Other: Voiding Method External Catheter External Catheter # Voids 1 4 - Labs CBC & Chem 7: 09/23/24 06:28 09/23/24 06:28 Labs: Abnormal Lab Results - Last 24 Hours (Table) 09/23/24 Range/Units 11:45 POC Glucose (mg/dL) 134 H (70-110) mg/dL Microbiology - Last 24 Hours (Table) 09/21/24 11:42 Blood Culture - Preliminary Blood
--- NOTE | 2024-09-24 11:04 | P.PN ---
Subjective Progress Note Date: 09/24/24 This is a very pleasant 83-year-old female patient with a history of hyperlipidemia. Lifelong non-smoker. She had presented here to the emergency room earlier today following a ground-level fall secondary to generalized weakness. Did hit her head on the ground. CT scan of the head revealed no acute intracranial process. She had been not feeling well since 3 days ago where she developed increasing shortness of breath, cough and congestion. Has had filler fever and chills. Nonproductive cough. Denies any nausea vomiting or diarrhea. No recent travels. No sick contacts. Chest x-ray does reveal airspace opacities bilaterally. Current temperature 101.6. O2 saturations in the 90s on 2 L/min per nasal cannula. White count 11.1. Hemoglobin 14.3. Platelets 196. Sodium 134. Potassium 4.2. Bicarb 21. BUN 10. Creatinine 0.63. Glucose 122. Lactic acid 2.4. Viral screen is negative. Currently sitting up on the stretcher. Awake and alert in no acute distress. No altered mentation. The patient is seen today September 22, 2024 in follow-up on the regular medical floor. She is awake and alert in no acute distress. Sitting up in a chair at the bedside. Doing a bit better today compared to yesterday. Not quite back to her baseline. She is maintaining O2 saturations in the 90s on 2 L/min per nasal cannula. Procalcitonin was 0.45. She remains on ceftriaxone and azithromycin. Chest x-ray continues to show scattered airspace opacities throughout the lungs. White count 10.3. Hemoglobin 12.6. Platelets 178. Sodium 137. Potassium 3.8. Bicarb 22. BUN 9. Creatinine 0.6. Glucose 129. She is on Lovenox for DVT prophylaxis. Normal saline at 75 mL/h. The patient is seen today September 23, 2024 in follow-up on the regular medical floor. She is sitting up in a chair at the bedside. Awake and alert in no acute distress. Maintaining good O2 saturations in the 90s on 2 L/min per nasal cannula. She still has a loose congested cough. Blood culture reveals no gr owth. White count 8.1. Hemoglobin 12.4. Platelets 172. Sodium 139. Potassium 3.7. Bicarb 24. BUN 12. Creatinine 0.6. Glucose 105. She remains on DuoNeb inhalations. Antibiotics in the form of ceftriaxone. Lovenox for DVT prophylaxis. Robitussin for her cough. The patient is seen today September 24, 2024 in follow-up on the regular medical floor. She is awake and alert in no acute distress. Sitting up in a chair at the bedside. Maintaining O2 saturations in the 90s on 3 L/min per nasal cannula. She has been afebrile. Hemodynamically stable. She is feeling better today. Not quite back to her baseline. Still with a congested cough. Blood culture revealed no growth. She is continued on ceftriaxone. Completed azithromycin. Lovenox for DVT prophylaxis. Robitussin for her cough. Remains on bronchodilators. Objective - Vital Signs Vital signs: Vital Signs Temp 98.4 F 09/24/24 07:10 Pulse 74 09/24/24 08:18 Resp 22 09/24/24 07:10 BP 125/77 09/24/24 07:10 Pulse Ox 97 09/24/24 08:04 FiO2 Intake & Output 09/23/24 09/24/24 09/24/24 18:59 06:59 18:59 Intake Total 1620 Output Total 650 300 Balance -650 1320 Weight 93 kg Intake: Oral 1620 Output: Urine 650 300 Other: Voiding Method External Catheter External Catheter # Voids 1 4 - Exam GENERAL EXAM: Alert, very pleasant 83-year-old female, up in a chair, on 2 L nasal cannula, in no apparent distress. HEAD: Normocephalic. Abrasion on forehead. EYES: Normal reaction of pupils, equal size. NOSE: Clear with pink turbinates. THROAT: No erythema or exudates. NECK: No masses, no JVD. CHEST: No chest wall deformity. LUNGS: Equal air entry with bilateral scattered rhonchi. CVS: S1 and S2 normal with no audible murmur, regular rhythm. ABDOMEN: No hepatosplenomegaly, normal bowel sounds, no guarding or rigidity. SPINE: No scoliosis or deformity SKIN: No rashes CENTRAL NERVOUS SYSTEM: No focal deficits, tone is normal in all 4 extremities. EXTREMITIES: There is no peripheral edema. No clubbing, no cyanosis. Peripheral pulses are intact. - Labs CBC & Chem 7: 09/23/24 06:28 09/23/24 06:28 Labs: Abnormal Lab Results - Last 24 Hours (Table) 09/23/24 Range/Units 11:45 POC Glucose (mg/dL) 134 H (70-110) mg/dL Microbiology - Last 24 Hours (Table) 09/21/24 11:42 Blood Culture - Preliminary Blood Assessment and Plan Assessment: Acute hypoxic respiratory failure secondary to suspected bilateral community- acquired pneumonia. Procalcitonin 0.45. Viral screen negative Generalized weakness and fall secondary to above. CT scan revealed no acute intracranial process Febrile illness secondary to above Mild leukocytosis neck secondary to above Mild lactic acidosis secondary to above lifelong non-smoker Hyperlipidemia Plan: The patient was seen and evaluated Medications reviewed Continue ceftriaxone, completed azithromycin Continue bronchodilators Robitussin and Tessalon Perles for cough Lovenox for DVT prophylaxis Titrate down the FiO2 as tolerated Follow-up chest x-ray in a.m. We will continue to follow I have personally seen and examined the patient, performed the documentation and the assessment and plan as written. Number of minutes spent on the visit: 10 Dictation was produced using [employer] dictation software. Please excuse any grammatical, word or spelling errors.
[2024-09-24] MEDS: BENZOCAINE/MENTHOL LOZENG 1 EACH LOZENGE MUCOUS MEM PRN (14:04)
[2024-09-25 07:51] VITALS: BP 154/81; RESP 16; TEMP 97.8
--- NOTE | 2024-09-25 08:11 | XR ---
EXAMINATION TYPE: XR chest 1V portable DATE OF EXAM: 09/25/2024 6:33 AM COMPARISON: 09/22/2024 CLINICAL INDICATION: Female, 83 years old with history of Pneumonia; [facility] TECHNIQUE: XR chest 1V portable Frontal view of the chest. FINDINGS: Lungs/Pleura: Bibasilar airspace opacities. There is no evidence of pleural effusion, focal consolida tion, or pneumothorax. Pulmonary vascularity: Pulmonary vascular congestion. Heart/mediastinum: Cardiomediastinal silhouette is enlarged. Atherosclerotic calcifications are seen in the aorta. Musculoskeletal: No acute osseous pathology. IMPRESSION: 1. Basilar airspace opacities correlate for pneumonia. 2. Cardiomegaly with pulmonary vascular congestion correlate serum BNP. [facility], , 09/25/2024 8:09 AM
[2024-09-25 08:42] LABS: Blood Urea Nitrogen 10.3 mg/dL (9.0-27.0); Calcium 8.2 mg/dL (8.7-10.3); Chloride 104 mmol/L (96-109); Glucose 104 mg/dL (70-110); Magnesium 2.1 mg/dL (1.5-2.4); Potassium 3.5 mmol/L (3.5-5.5); Sodium 138 mmol/L (135-145)
[2024-09-25 11:44] VITALS: PULSE 80
--- NOTE | 2024-09-25 12:45 | P.PN ---
Subjective Progress Note Date: 09/25/24 This is a very pleasant 83-year-old female patient with a history of hyperlipidemia. Lifelong non-smoker. She had presented here to the emergency room earlier today following a ground-level fall secondary to generalized weakness. Did hit her head on the ground. CT scan of the head revealed no acute intracranial process. She had been not feeling well since 3 days ago where she developed increasing shortness of breath, cough and congestion. Has had filler fever and chills. Nonproductive cough. Denies any nausea vomiting or diarrhea. No recent travels. No sick contacts. Chest x-ray does reveal airspace opacities bilaterally. Current temperature 101.6. O2 saturations in the 90s on 2 L/min per nasal cannula. White count 11.1. Hemoglobin 14.3. Platelets 196. Sodium 134. Potassium 4.2. Bicarb 21. BUN 10. Creatinine 0.63. Glucose 122. Lactic acid 2.4. Viral screen is negative. Currently sitting up on the stretcher. Awake and alert in no acute distress. No altered mentation. The patient is seen today September 22, 2024 in follow-up on the regular medical floor. She is awake and alert in no acute distress. Sitting up in a chair at the bedside. Doing a bit better today compared to yesterday. Not quite back to her baseline. She is maintaining O2 saturations in the 90s on 2 L/min per nasal cannula. Procalcitonin was 0.45. She remains on ceftriaxone and azithromycin. Chest x-ray continues to show scattered airspace opacities throughout the lungs. White count 10.3. Hemoglobin 12.6. Platelets 178. Sodium 137. Potassium 3.8. Bicarb 22. BUN 9. Creatinine 0.6. Glucose 129. She is on Lovenox for DVT prophylaxis. Normal saline at 75 mL/h. The patient is seen today September 23, 2024 in follow-up on the regular medical floor. She is sitting up in a chair at the bedside. Awake and alert in no acute distress. Maintaining good O2 saturations in the 90s on 2 L/min per nasal cannula. She still has a loose congested cough. Blood culture reveals no gr owth. White count 8.1. Hemoglobin 12.4. Platelets 172. Sodium 139. Potassium 3.7. Bicarb 24. BUN 12. Creatinine 0.6. Glucose 105. She remains on DuoNeb inhalations. Antibiotics in the form of ceftriaxone. Lovenox for DVT prophylaxis. Robitussin for her cough. The patient is seen today September 24, 2024 in follow-up on the regular medical floor. She is awake and alert in no acute distress. Sitting up in a chair at the bedside. Maintaining O2 saturations in the 90s on 3 L/min per nasal cannula. She has been afebrile. Hemodynamically stable. She is feeling better today. Not quite back to her baseline. Still with a congested cough. Blood culture revealed no growth. She is continued on ceftriaxone. Completed azithromycin. Lovenox for DVT prophylaxis. Robitussin for her cough. Remains on bronchodilators. The patient is seen today September 25, 2024 in follow-up on the regular medical floor. She is awake and alert in no acute distress. Up in a chair. Denies any worsening shortness of breath cough or congestion. She is feeling back to her baseline. She has been continued on DuoNeb inhalations, Tessalon Perles, Robitussin. proBNP 575. Sodium 138. Potassium 3.5. Bicarb 27. BUN 10. Creatinine 0.5. Glucose 104. Remains on ceftriaxone. Completed azithromycin. Lovenox for DVT prophylaxis. Chest x-ray reveals stable bilateral opacities. Cardiomegaly and mild pulmonary vascular congestion. Objective - Vital Signs Vital signs: Vital Signs Temp 97.8 F 09/25/24 07:10 Pulse 80 09/25/24 11:43 Resp 16 09/25/24 11:43 BP 154/81 09/25/24 07:10 Pulse Ox 94 L 09/25/24 08:23 FiO2 Intake & Output 09/24/24 09/25/24 09/25/24 18:59 06:59 18:59 Intake Total 1080 Balance 1080 Weight 93.2 kg Intake: Oral 1080 Other: # Voids 3 4 - Exam GENERAL EXAM: Alert, 83-year-old female, up in a chair, on room air, in no apparent distress. HEAD: Normocephalic. Abrasion on forehead. EYES: Normal reaction of pupils, equal size. NOSE: Clear with pink turbinates. THROAT: No erythema or exudates. NECK: No masses, no JVD. CHEST: No chest wall deformity. LUNGS: Equal air entry with no significant crackles, wheeze or rhonchi. CVS: S1 and S2 normal with no audible murmur, regular rhythm. ABDOMEN: No hepatosplenomegaly, normal bowel sounds, no guarding or rigidity. SPINE: No scoliosis or deformity SKIN: No rashes CENTRAL NERVOUS SYSTEM: No focal deficits, tone is normal in all 4 extremities. EXTREMITIES: There is no peripheral edema. No clubbing, no cyanosis. Peripheral pulses are intact. - Labs CBC & Chem 7: 09/23/24 06:28 09/25/24 02:44 Labs: Abnormal Lab Results - Last 24 Hours (Table) 09/25/24 Range/Units 02:44 Creatinine 0.5 L (0.6-1.5) mg/dL BUN/Creatinine Ratio 20.60 H (12.00-20.00) Ratio Calcium 8.2 L (8.7-10.3) mg/dL Microbiology - Last 24 Hours (Table) 09/21/24 11:42 Blood Culture - Preliminary Blood Assessment and Plan Assessment: Acute hypoxic respiratory failure secondary to suspected bilateral community- acquired pneumonia. Procalcitonin 0.45. Viral screen negative Generalized weakness and fall secondary to above. CT scan revealed no acute intracranial process Febrile illness secondary to above Mild leukocytosis neck secondary to above Mild lactic acidosis secondary to above lifelong non-smoker Hyperlipidemia Plan: The patient was seen and evaluated Chest x-ray, medications and labs reviewed Completed ceftriaxone and azithromycin Stable and on room air Cleared for discharge Follow-up in our office in 1 week I have personally seen and examined the patient, performed the documentation and the assessment and plan as written. Number of minutes spent on the visit: 10 Dictation was produced using [employer] dictation software. Please excuse any grammatical, word or spelling errors.
--- NOTE | 2024-09-25 13:21 | P.DS ---
Providers Date of admission: 09/21/24 13:56 Expected date of discharge: 09/25/24 Attending physician: Goyo Rodriguez Consults: 09/21/24 13:54 Consult Physician Routine Consulting Provider: Kat Wise Consult Reason/Comments: hypoxic resp failure from multifocal pneumonia, sepsis Do you want consulting provider notified?: Yes Primary care physician: [facility] Course: 83-year-old female with a PMH of HLD and DM presented to the ED with a chief complaint of shortness of breath, cough, generalized weakness and fall at home. Upon arrival to our facility, patient underwent evaluation in the emergency department. Vital signs upon arrival show blood pressure 168/77, heart rate 100, respiratory rate 28, temp 100.8 F, and SpO2 of 90% on room air increasing to 94% on 2 L. EKG completed showing sinus tachycardia at 101 bpm with T wave inversion in lateral leads I and aVL. Chest x-ray completed showing scattered airspace opacities throughout the lungs consistent with multifocal pneumonia. Labs completed and reviewed. CBC showing leukocytosis with WBC count of 11.1. Initial lactic was 2.4. Influenza A, influenza B, RSV, and COVID PCR were negative. Patient started on IV antibiotics and admitted under our services with consultation to pulmonology. Procalcitonin negative. Completed a course of Rocephin/Azithromycin. Cleared by Pulmonary for discharge. 09/25 Patient was seen and examined. Felling well. On room air. Working well with PT and OT. Comfortably going home today. Discharge Plans: Albuterol INH PRN, Tessalon PRN, Mucinex prescribed. Follow up with Dr. Wise within 1 week and PCP within 1-2 days of discharge. General: non toxic, no distress, appears at stated age Derm: warm, dry Head: atraumatic, normocephalic, symmetric Eyes: EOMI, no lid lag, anicteric sclera Mouth: no lip lesion, mucus membranes moist Cardiovascular: S1S2 reg, no murmur Lungs: Decreased BS bilateral, no rhonchi, no rales , no accessory muscle use Ext: no gross muscle atrophy, no edema, no contractures Neuro: no focal neuro deficits Psych: Alert, oriented, appropriate affect Discharge Diagnosis: Acute hypoxic respiratory failure Multifocal pneumonia Sepsis on admission secondary to above Lactic acidosis secondary to above Dyslipidemia Diabetes mellitus This complex discharge took 35 minutes to complete. Patient Condition at Discharge: Stable Plan - Discharge Summary Discharge Rx Participant: No New Discharge Prescriptions: New Benzocaine/Menthol Lozeng [Cepacol lozenge] 1 each MUCOUS MEM Q4HR PRN lozenge PRN Reason: Cough guaiFENesin [Mucinex] 1,200 mg PO BID #14 tab Benzonatate [Tessalon Perles] 200 mg PO TID PRN #30 cap PRN Reason: Cough Acetaminophen Tab [Tylenol] 650 mg PO Q6HR PRN tab PRN Reason: Mild Pain Or Fever > 100.5 Albuterol Inhaler [Ventolin Hfa Inhaler] 1 puff INHALATION QID PRN #8 gm PRN Reason: Shortness Of Breath Or Wheezing Continue flaxseed oiL [[place]-3 Flaxseed Oil] 1,000 mg PO DAILY Atorvastatin [Lipitor] 20 mg PO DAILY Multivitamins, Thera [Multivitamin (formulary)] 1 tab PO DAILY Cholecalciferol (Vitamin D3) [Vitamin D3 (50 Mcg = 2000 Iu)] 50 mcg PO DAILY Discharge Medication List flaxseed oiL [[place]-3 Flaxseed Oil] 1,000 mg PO DAILY 01/21/17 [History] Atorvastatin [Lipitor] 20 mg PO DAILY 09/21/24 [History] Cholecalciferol (Vitamin D3) [Vitamin D3 (50 Mcg = 2000 Iu)] 50 mcg PO DAILY 09/21/24 [History] Multivitamins, Thera [Multivitamin (formulary)] 1 tab PO DAILY 09/21/24 [History] Acetaminophen Tab [Tylenol] 650 mg PO Q6HR PRN tab 09/25/24 [Rx] Albuterol Inhaler [Ventolin Hfa Inhaler] 1 puff INHALATION QID PRN #8 gm 09/25/24 [Rx] Benzocaine/Menthol Lozeng [Cepacol lozenge] 1 each MUCOUS MEM Q4HR PRN lozenge 09/25/24 [Rx] Benzonatate [Tessalon Perles] 200 mg PO TID PRN #30 cap 09/25/24 [Rx] guaiFENesin [Mucinex] 1,200 mg PO BID #14 tab 09/25/24 [Rx] Follow up Appointment(s)/Referral(s): Kat Wise MD [STAFF PHYSICIAN] - 1 Week [facility] [NON-STAFF] - As Needed (walker) Samuel Crowder MD [Primary Care Provider] - 1-2 days
== END 2024-09-25 15:11 | disposition home or self-care (01) | DRG 871 ==
LOC: EC 10:59 → 3SCARD 13:56 → 4SSUR 16:44
PROVIDERS: ADMIT Student in an Organized Health Care Education/Training Program; ATTEND Student in an Organized Health Care Education/Training Program
DX: A41.9 Sepsis, unspecified organism (principal); J18.9 Pneumonia, unspecified organism; J96.01 Acute respiratory failure with hypoxia; E87.1 Hypo-osmolality and hyponatremia; E87.20 Acidosis, unspecified; E11.9 Type 2 diabetes mellitus without complications; E78.5 Hyperlipidemia, unspecified; I51.7 Cardiomegaly; S00.81XA Abrasion of other part of head, initial encounter; W18.39XA Other fall on same level, initial encounter; Y92.009 Unspecified place in unspecified non-institutional (private) residence as the place of occurrence of the external cause; Y99.8 Other external cause status; Z79.899 Other long term (current) drug therapy; Z88.6 Allergy status to analgesic agent
CPT/HCPCS: 36415; 70450; 71045; 71046; 80048; 80053; 81001; 83605; 83735; 83880; 84145; 85025; 85610; 85730; 86738; 87040; 87449; 87636; 93005; 94640; 94760; 96361; 96365; 96366; 96367; 99291

== ENCOUNTER → 2025-02-02 | Outpatient (CLI) | payer MEDICARE ==
--- NOTE | 2025-02-02 13:48 | US ---
EXAMINATION TYPE: US kidneys/renal and bladder DATE OF EXAM: 02/02/2025 COMPARISON: CT abdomen and pelvis 01/21/2017 CLINICAL INDICATION: Female, 84 years old with history of R31.9 HEMATURIA, UNSPECIFIED; Patient denie s any signs, symptoms, or relevant history TECHNIQUE: Grayscale imaging of the bilateral kidneys and urinary bladder: FINDINGS: EXAM MEASUREMENTS: Right Kidney: 10.8 x 4.6 x 4.1 cm Left Kidney: 9.9 x 3.7 x 4.3 cm Post Void Residual Volume: NA mL Right Kidney: wnl, no evidence for hydronephrosis, mass or renal calculus. Left Kidney: wnl, no evidence for hydronephrosis, mass or renal calculus. Bladder: Patient not able to lay flat, limited visualization, WNL as visualized. Bilateral Jets seen: Not able to assess Normal Post Void Residual: NA There is no evidence for hydronephrosis at this point in time. No nephrolithiasis is seen. No d[place] s are identified. Corticomedullary differentiation is preserved bilaterally. No cortical thinning. Th e urinary bladder is anechoic. IMPRESSION: No hydronephrosis or nephrolithiasis. [facility], , 02/02/2025 1:46 PM
== END | disposition home or self-care (01) ==
LOC: RADUSWWP 13:16
PROVIDERS: ATTEND Family Medicine
DX: R31.9 Hematuria, unspecified (principal)
CPT/HCPCS: 76770

== ENCOUNTER → 2025-02-13 | Outpatient (CLI) | payer MEDICARE ==
[2025-02-13 15:20] LABS: HCT 43.8 % (37.2-46.3); HGB 14.3 g/dL (12.0-15.0); MCH 30.7 pg (27.0-32.0); MCHC 32.6 g/dL (32.0-37.0); Mean Platelet Volume 10.8 FL (9.5-12.2); NRBC Per 100 WBC 0 X 10*3/uL (0.00-0.01); Platelet Count 299 X 10*3/uL (140-440); RBC 4.66 X 10*6/uL (4.10-5.20); RDW 13.2 % (11.5-14.5); WBC 9.12 X 10*3/uL (4.50-10.00)
[2025-02-13 15:21] LABS: Basophils # (A) 0.04 X 10*3/uL (0.00-0.10); Basophils % (A) 0.4 %; Eosinophils # (A) 0.38 X 10*3/uL (0.04-0.35); Eosinophils % (A) 4.2 %; Lymphocytes # (A) 1.63 X 10*3/uL (0.90-5.00); Lymphocytes % (A) 17.9 %; Monocytes # (A) 0.64 X 10*3/uL (0.20-1.00); Neutrophils % (A) 70.2 %
[2025-02-13 15:33] LABS: ALT 29 U/L (8-44); AST 32 U/L (13-35); Albumin 4.5 g/dL (3.8-4.9); Albumin/Globulin Ratio 1.96 Ratio (1.60-3.17); Alkaline Phosphatase 126 U/L (41-126); BUN/Creat Ratio 14.38 Ratio (12.00-20.00); Blood Urea Nitrogen 11.5 mg/dL (9.0-27.0); Calcium 9.7 mg/dL (8.7-10.3); Carbon Dioxide 26.5 mmol/L (21.6-31.8); Chloride 103 mmol/L (96-109); Chol/HDL Ratio 2.46 Ratio; Globulin 2.3 g/dL (1.6-3.3); Glucose 108 mg/dL (70-110); LDL Cholesterol,Calculated 48.2 mg/dL (0.0-131.0); Potassium 4.4 mmol/L (3.5-5.5); Sodium 142 mmol/L (135-145); Total Bilirubin 0.7 mg/dL (0.3-1.2); Total Protein 6.8 g/dL (6.2-8.2)
== END | disposition home or self-care (01) ==
LOC: LABWHC1 10:01
PROVIDERS: ATTEND Family Medicine
DX: E78.5 Hyperlipidemia, unspecified (principal)
CPT/HCPCS: 36415; 80053; 80061; 83036; 85025